=== PATIENT | female | born 1965 | race African-American/Black ===

== ENCOUNTER 2017-03-14 16:08 | Emergency (ER) | payer MEDICARE, MEDICAID ==
[~2017-03-14] VITALS: Ht 175.3 cm; Wt 95.5 kg
[~2017-03-14 16:08] MED LIST: AMBIEN5 MG PO; AMOXICILLIN500 MG PO; ANTIVERT PO; ASPIRIN325 MG PO; ASPIRIN81 MG PO; CIPROFLOXACIN500 M1 PO; COUMADIN2.5 MG PO; COUMADIN4 MG PO; DIFLUCAN150 MG PO; EFFEXOR37.5 MG PO; EQL ASPIRIN325 MG PO; KEPPRA1000 MG PO; LANSOPRAZOLE30 MG PO; LEVETIRACETAM500 MG PO; LIPITOR10 MG PO; LIPITOR40 M1 PO; LIPITOR40 MG PO; LORTAB 7.5-3251 TAB PO; NAPROSYN500 MG PO; PLAVIX75 MG PO; PROTONIX20 M1 PO; PROVERA5 MG PO; SEROQUEL50 MG PO; ULTRAM50 M1 PO; WARFARIN5 MG PO; XANAX0.25 MG PO; ZANAFLEX4 MG PO; ZOCOR20 M1 PO; ZOLOFT100 MG PO; ZOLOFT50 MG PO
[2017-03-14] MEDS ORDERED: AMOXICILLIN500 MG PO ×2 (17:12→17:25)
[2017-03-14] MEDS ORDERED: MUCINEX600 MG PO ×2 (17:12→17:25)
[2017-03-14 17:20] VITALS: BP 125/79
== END 2017-03-14 17:20 | disposition home or self-care (01) ==
LOC: ED 16:08
DX: J40 Bronchitis, not specified as acute or chronic (principal); F32.9 Major depressive disorder, single episode, unspecified; E78.5 Hyperlipidemia, unspecified; G40.909 Epilepsy, unspecified, not intractable, without status epilepticus; Z86.73 Personal history of transient ischemic attack (TIA), and cerebral infarction without residual deficits

== ENCOUNTER 2017-03-15 13:09 | Emergency (ER) | payer MEDICARE, MEDICAID ==
[~2017-03-15] VITALS: Ht 175.3 cm; Wt 100.0 kg
[~2017-03-15 13:09] MED LIST changes: +MUCINEX600 MG PO
[2017-03-15 13:54] LABS: HEMATOCRIT 34.5 % (37.0-47.0); HEMOGLOBIN 11.1 g/dl (12.0-16.0); MEAN CORPUSCULAR HGB 30.6 pG CALC (26.0-32.0); MEAN CORPUSCULAR HGB CONC 32.2 g/L CALC (32.0-36.0); NEUT# 1.36 thou/uL (2.00-7.15); RED BLOOD COUNT 3.63 mill/uL (4.20-5.60); RED CELL DISTRI WIDTH 13.5 % (11.5-15.5)
[2017-03-15 14:03] LABS: ALBUMIN 4.2 g/dL (3.2-5.0); ALKALINE PHOSPHATASE 80 u/l (38-126); AMYLASE 79 u/l (30-110); ANION GAP 14 (6-22 (CALC)); BILIRUBIN, TOTAL 0.4 mg/dL (0.0-1.4); BUN 7 mg/dL (7-17); BUN/CREATININE RATIO 11 (12-20 (CALC)); CALCIUM 9.1 mg/dL (8.4-10.2); CARBON DIOXIDE 23 mmol/l (22-30); CHLORIDE 106 mmol/l (95-108); CREATININE 0.6 mg/dL (0.5-1.0); GFR > 60 ML/MIN (>=60 (CALC)); GFR FOR AFR.AMER. > 60 ML/MIN (>=60 (CALC)); GLUCOSE 80 mg/dL (65-105); LIPASE 25 u/l (23-300); POTASSIUM 3.9 mmol/l (3.5-5.1); SGOT/AST 43 u/l (14-36); SGPT/ALT 44 u/l (9-52); SODIUM 139 mmol/l (137-146); TOTAL PROTEIN 7.1 g/dL (6.3-8.2)
[2017-03-15 14:09] LABS: ACT PARTIAL THROMBO TIME 27.6 SECONDS (20.0-32.5); D-DIMER 0.59 mg/L (0.19-0.60)
[2017-03-15 14:15] LABS: MYOGLOBIN 20 ng/mL (0 - 62)
[2017-03-15 18:25] VITALS: BP 127/78
== END 2017-03-15 18:45 | disposition home or self-care (01) ==
LOC: ED 13:09
PROVIDERS: Emergency Medicine
DX: R07.89 Other chest pain (principal); R94.31 Abnormal electrocardiogram [ECG] [EKG]; R06.02 Shortness of breath; R05 Cough; Z86.73 Personal history of transient ischemic attack (TIA), and cerebral infarction without residual deficits

== ENCOUNTER 2017-06-24 16:20 | Emergency (ER) | payer MEDICARE ==
[~2017-06-24] VITALS: Ht 175.3 cm; Wt 100.0 kg
[2017-06-24] MEDS ORDERED: NAPROSYN500 MG PO (16:55)
[2017-06-24] MEDS ORDERED: OMEPRAZOLE10 MG PO (16:56)
[2017-06-24] MEDS ORDERED: TRAZODONE50 MG PO (16:56)
[2017-06-24 17:14] LABS: HEMATOCRIT 37.1 % (37.0-47.0); HEMOGLOBIN 11.7 g/dl (12.0-16.0); IMMATURE GRANULOCYTES 0.2 % (0.0-1.0); MEAN CELL VOLUME 95.4 fL CALC (80.0-100.0); MEAN CORPUSCULAR HGB 30.1 pG CALC (26.0-32.0); MEAN CORPUSCULAR HGB CONC 31.5 g/L CALC (32.0-36.0); NEUT# 2.59 thou/uL (2.00-7.15); RED BLOOD COUNT 3.89 mill/uL (4.20-5.60); RED CELL DISTRI WIDTH 13.6 % (11.5-15.5)
[2017-06-24 17:19] LABS: ANION GAP 14 (6-22 (CALC)); BUN 11 mg/dL (7-17); BUN/CREATININE RATIO 18 (12-20 (CALC)); CALCIUM 9.4 mg/dL (8.4-10.2); CARBON DIOXIDE 27 mmol/l (22-30); CHLORIDE 106 mmol/l (95-108); CREATININE 0.6 mg/dL (0.5-1.0); GFR > 60 ML/MIN (>=60 (CALC)); GFR FOR AFR.AMER. > 60 ML/MIN (>=60 (CALC)); GLUCOSE 83 mg/dL (65-105); POTASSIUM 3.6 mmol/l (3.5-5.1); SODIUM 142 mmol/l (137-146)
[2017-06-24 17:38] VITALS: BP 117/82
== END 2017-06-24 17:47 | disposition home or self-care (01) ==
LOC: ED 16:20
PROVIDERS: Family Medicine
DX: G40.409 Other generalized epilepsy and epileptic syndromes, not intractable, without status epilepticus (principal); F32.9 Major depressive disorder, single episode, unspecified; E78.5 Hyperlipidemia, unspecified; Z86.73 Personal history of transient ischemic attack (TIA), and cerebral infarction without residual deficits

== ENCOUNTER 2017-09-24 17:16 | Emergency (ER) | payer MEDICARE ==
[~2017-09-24] VITALS: Ht 175.3 cm; Wt 100.0 kg
[~2017-09-24 17:16] MED LIST changes: +OMEPRAZOLE10 MG PO; +TRAZODONE50 MG PO
[2017-09-24] MEDS ORDERED: DILAUDID8 MG PO (17:37)
[2017-09-24] MEDS ORDERED: GABAPENTIN100 MG PO (17:38)
[2017-09-24] MEDS ORDERED: NAPROSYN500 MG PO (18:31)
[2017-09-24 18:49] VITALS: BP 131/77
== END 2017-09-24 18:49 | disposition home or self-care (01) ==
LOC: ED 17:16
DX: S93.402A Sprain of unspecified ligament of left ankle, initial encounter (principal); M25.472 Effusion, left ankle; M25.572 Pain in left ankle and joints of left foot; W18.30XA Fall on same level, unspecified, initial encounter; X50.1XXA Overexertion from prolonged static or awkward postures, initial encounter; Y93.A9 Activity, other involving cardiorespiratory exercise; Y92.538 Other ambulatory health services establishments as the place of occurrence of the external cause

== ENCOUNTER 2017-10-09 17:40 | Emergency (ER) | payer MEDICARE ==
[~2017-10-09] VITALS: Ht 175.3 cm; Wt 103.0 kg
[~2017-10-09 17:40] MED LIST changes: +DILAUDID8 MG PO; +GABAPENTIN100 MG PO
[2017-10-09 19:01] LABS: HEMATOCRIT 37.4 % (37.0-47.0); IMMATURE GRANULOCYTES 0.2 % (0.0-1.0); MEAN CELL VOLUME 95.2 fL CALC (80.0-100.0); MEAN CORPUSCULAR HGB 30.5 pG CALC (26.0-32.0); MEAN CORPUSCULAR HGB CONC 32.1 g/L CALC (32.0-36.0); NEUT# 3.46 thou/uL (2.00-7.15); RED BLOOD COUNT 3.93 mill/uL (4.20-5.60); RED CELL DISTRI WIDTH 13.5 % (11.5-15.5)
[2017-10-09 19:02] LABS: URINE BLOOD DIPSTICK NEGATIVE (NEGATIVE); URINE COLOR YELLOW; URINE GLUCOSE - DIPSTICK NEGATIVE (NEGATIVE); URINE KETONE 15 mg/dL (NEGATIVE); URINE LEUK ESTERASE NEGATIVE (NEGATIVE); URINE NITRITE - DIPSTICK NEGATIVE (Negative); URINE PH 5.5 (4.5-8.0); URINE PROTEIN - DIPSTICK NEGATIVE (NEG-TRACE); URINE SPECIFIC GRAVITY >=1.030
[2017-10-09 19:07] LABS: COCAINE NEGATIVE (NEGATIVE); URINE BILIRUBIN - DIPSTICK SMALL (NEGATIVE); URINE CLARITY CLEAR
[2017-10-09 19:08] LABS: BARBITURATES NEGATIVE (NEGATIVE); METHADONE NEGATIVE (NEGATIVE); OXCYCODONE NEGATIVE (NEGATIVE); TETRAHYDROCANNABIONOL POSITIVE (NEGATIVE); TRICYLIC ANTIDEPRESSANTS NEGATIVE (NEGATIVE)
[2017-10-09 19:13] LABS: ACT PARTIAL THROMBO TIME 28.4 SECONDS (20.0-32.5); PROTHROMBIN TIME 11.1 SECONDS (9.0-12.5)
[2017-10-09 19:21] LABS: ALBUMIN 4.3 g/dL (3.2-5.0); ALKALINE PHOSPHATASE 126 u/l (38-126); ANION GAP 15 (6-22 (CALC)); BILIRUBIN, TOTAL 0.4 mg/dL (0.0-1.4); BUN 13 mg/dL (7-17); BUN/CREATININE RATIO 20 (12-20 (CALC)); CALCIUM 10.1 mg/dL (8.4-10.2); CARBON DIOXIDE 25 mmol/l (22-30); CHLORIDE 107 mmol/l (95-108); CREATININE 0.6 mg/dL (0.5-1.0); GFR > 60 ML/MIN (>=60 (CALC)); GFR FOR AFR.AMER. > 60 ML/MIN (>=60 (CALC)); GLUCOSE 103 mg/dL (65-105); POTASSIUM 3.7 mmol/l (3.5-5.1); SGOT/AST 30 u/l (14-36); SGPT/ALT 28 u/l (9-52); SODIUM 143 mmol/l (137-146)
[2017-10-09 19:33] LABS: MYOGLOBIN 27 ng/mL (0 - 62)
[2017-10-10 08:09] VITALS: BP 116/61
== END 2017-10-10 08:25 | disposition home or self-care (01) ==
LOC: ED 17:40
PROVIDERS: Emergency Medicine
DX: R51 Headache (principal); R20.2 Paresthesia of skin; R42 Dizziness and giddiness; F17.210 Nicotine dependence, cigarettes, uncomplicated; I69.398 Other sequelae of cerebral infarction; M24.542 Contracture, left hand; R00.1 Bradycardia, unspecified; R56.9 Unspecified convulsions

== ENCOUNTER 2017-10-31 15:39 | Emergency (ER) | payer MEDICARE ==
[~2017-10-31] VITALS: Ht 175.3 cm; Wt 102.0 kg
[2017-10-31 16:43] LABS: HEMATOCRIT 39.6 % (37.0-47.0); HEMOGLOBIN 12.4 g/dl (12.0-16.0); IMMATURE GRANULOCYTES 0.1 % (0.0-1.0); MEAN CELL VOLUME 96.4 fL CALC (80.0-100.0); MEAN CORPUSCULAR HGB 30.2 pG CALC (26.0-32.0); MEAN CORPUSCULAR HGB CONC 31.3 g/L CALC (32.0-36.0); NEUT# 2.9 thou/uL (2.00-7.15); RED BLOOD COUNT 4.11 mill/uL (4.20-5.60); RED CELL DISTRI WIDTH 13.5 % (11.5-15.5)
[2017-10-31 18:02] LABS: ALBUMIN 4.4 g/dL (3.2-5.0); ALKALINE PHOSPHATASE 125 u/l (38-126); ANION GAP 20 (6-22 (CALC)); BILIRUBIN, TOTAL 0.4 mg/dL (0.0-1.4); BUN 7 mg/dL (7-17); BUN/CREATININE RATIO 11 (12-20 (CALC)); CALCIUM 9.9 mg/dL (8.4-10.2); CARBON DIOXIDE 24 mmol/l (22-30); CHLORIDE 107 mmol/l (95-108); CREATININE 0.6 mg/dL (0.5-1.0); GFR > 60 ML/MIN (>=60 (CALC)); GFR FOR AFR.AMER. > 60 ML/MIN (>=60 (CALC)); GLUCOSE 82 mg/dL (65-105); SGOT/AST 40 u/l (14-36); SGPT/ALT 33 u/l (9-52); SODIUM 146 mmol/l (137-146); TOTAL PROTEIN 7.5 g/dL (6.3-8.2)
[2017-10-31 18:11] VITALS: BP 134/87
[2017-10-31 18:11] LABS: MYOGLOBIN 20 ng/mL (0 - 62)
== END 2017-10-31 18:12 | disposition home or self-care (01) ==
LOC: ED 15:39
PROVIDERS: Family Medicine
DX: R56.9 Unspecified convulsions (principal); R53.1 Weakness; R51 Headache; F17.210 Nicotine dependence, cigarettes, uncomplicated; D86.0 Sarcoidosis of lung; Z86.73 Personal history of transient ischemic attack (TIA), and cerebral infarction without residual deficits
CPT/HCPCS: J2060

== ENCOUNTER 2017-11-06 20:58 | Emergency (ER) | payer MEDICARE ==
[~2017-11-06] VITALS: Ht 175.3 cm; Wt 103.0 kg
[2017-11-06 22:01] LABS: HEMATOCRIT 37.3 % (37.0-47.0); HEMOGLOBIN 11.9 g/dl (12.0-16.0); IMMATURE GRANULOCYTES 0.4 % (0.0-1.0); MEAN CELL VOLUME 94.7 fL CALC (80.0-100.0); MEAN CORPUSCULAR HGB 30.2 pG CALC (26.0-32.0); MEAN CORPUSCULAR HGB CONC 31.9 g/L CALC (32.0-36.0); NEUT# 2.68 thou/uL (2.00-7.15); RED BLOOD COUNT 3.94 mill/uL (4.20-5.60); RED CELL DISTRI WIDTH 13.6 % (11.5-15.5)
[2017-11-06 22:13] LABS: ALBUMIN 4.2 g/dL (3.2-5.0); ALKALINE PHOSPHATASE 105 u/l (38-126); ANION GAP 12 (6-22 (CALC)); BILIRUBIN, TOTAL 0.3 mg/dL (0.0-1.4); BUN 10 mg/dL (7-17); BUN/CREATININE RATIO 15 (12-20 (CALC)); CALCIUM 10.2 mg/dL (8.4-10.2); CARBON DIOXIDE 28 mmol/l (22-30); CHLORIDE 106 mmol/l (95-108); CREATININE 0.7 mg/dL (0.5-1.0); GFR > 60 ML/MIN (>=60 (CALC)); GFR FOR AFR.AMER. > 60 ML/MIN (>=60 (CALC)); GLUCOSE 90 mg/dL (65-105); POTASSIUM 3.7 mmol/l (3.5-5.1); SGOT/AST 24 u/l (14-36); SGPT/ALT 26 u/l (9-52); SODIUM 143 mmol/l (137-146); TOTAL PROTEIN 6.8 g/dL (6.3-8.2)
[2017-11-06 22:43] LABS: URINE BLOOD DIPSTICK NEGATIVE (NEGATIVE); URINE COLOR YELLOW; URINE GLUCOSE - DIPSTICK NEGATIVE (NEGATIVE); URINE KETONE TRACE mg/dL (NEGATIVE); URINE NITRITE - DIPSTICK NEGATIVE (Negative); URINE PH 5.5 (4.5-8.0); URINE PROTEIN - DIPSTICK TRACE mg/dL (NEG-TRACE); URINE SPECIFIC GRAVITY >=1.030
[2017-11-06 22:45] LABS: URINE CLARITY CLEAR; URINE LEUK ESTERASE SMALL (NEGATIVE)
[2017-11-06 22:47] LABS: URINE BILIRUBIN - DIPSTICK NEGATIVE (NEGATIVE)
[2017-11-06 22:48] LABS: BARBITURATES NEGATIVE (NEGATIVE); COCAINE NEGATIVE (NEGATIVE); METHADONE NEGATIVE (NEGATIVE); TETRAHYDROCANNABIONOL NEGATIVE (NEGATIVE); TRICYLIC ANTIDEPRESSANTS NEGATIVE (NEGATIVE)
[2017-11-06 22:49] LABS: OXCYCODONE NEGATIVE (NEGATIVE)
[2017-11-06 22:53] LABS: URINE BACTERIA MODERATE hpf; URINE MUCUS MODERATE hpf (NONE-FEW); URINE RBC 0-2 RBC/hpf (0-5)
[2017-11-06 23:23] VITALS: BP 118/66
== END 2017-11-06 23:31 | disposition home or self-care (01) ==
LOC: ED 20:58
PROVIDERS: Emergency Medicine
DX: R56.9 Unspecified convulsions (principal); F43.20 Adjustment disorder, unspecified; M62.838 Other muscle spasm; Z86.73 Personal history of transient ischemic attack (TIA), and cerebral infarction without residual deficits
CPT/HCPCS: J2060

== ENCOUNTER 2017-12-04 13:57 | Observation (INO) | payer MEDICARE, MEDICAID ==
[~2017-12-04] VITALS: Ht 175.3 cm; Wt 101.0 kg
[2017-12-04 15:56] LABS: HEMATOCRIT 37.4 % (37.0-47.0); HEMOGLOBIN 12.1 g/dl (12.0-16.0); MEAN CELL VOLUME 94.2 fL CALC (80.0-100.0); MEAN CORPUSCULAR HGB 30.5 pG CALC (26.0-32.0); MEAN CORPUSCULAR HGB CONC 32.4 g/L CALC (32.0-36.0); RED BLOOD COUNT 3.97 mill/uL (4.20-5.60); RED CELL DISTRI WIDTH 13.6 % (11.5-15.5)
[2017-12-04 16:07] LABS: ANION GAP 16 (6-22 (CALC)); BUN 10 mg/dL (7-17); BUN/CREATININE RATIO 14 (12-20 (CALC)); CARBON DIOXIDE 27 mmol/l (22-30); CHLORIDE 107 mmol/l (95-108); CREATININE 0.7 mg/dL (0.5-1.0); GFR > 60 ML/MIN (>=60 (CALC)); GFR FOR AFR.AMER. > 60 ML/MIN (>=60 (CALC)); POTASSIUM 3.6 mmol/l (3.5-5.1); SODIUM 146 mmol/l (137-146)
[2017-12-04 17:17] VITALS: BP 106/68
[2017-12-04 19:05] VITALS: BP 123/80
[2017-12-04 23:45] VITALS: BP 106/62
[2017-12-05 01:28] LABS: URINE BLOOD DIPSTICK NEGATIVE (NEGATIVE); URINE COLOR YELLOW; URINE GLUCOSE - DIPSTICK NEGATIVE (NEGATIVE); URINE KETONE NEGATIVE (NEGATIVE); URINE LEUK ESTERASE NEGATIVE (NEGATIVE); URINE NITRITE - DIPSTICK NEGATIVE (Negative); URINE PROTEIN - DIPSTICK TRACE mg/dL (NEG-TRACE); URINE SPECIFIC GRAVITY >=1.030
[2017-12-05 01:31] LABS: URINE BILIRUBIN - DIPSTICK NEGATIVE (NEGATIVE); URINE CLARITY SL CLOUDY
[2017-12-05 03:45] VITALS: BP 100/65
[2017-12-05 08:38] VITALS: BP 114/70
[2017-12-05 15:13] LABS: CHOLESTEROL HDL RATIO 4.1 (<4.4 (CALC))
[2017-12-05 16:00] VITALS: BP 109/72
[2017-12-05 19:45] VITALS: BP 105/60
[2017-12-06 00:50] VITALS: BP 116/72
[2017-12-06 04:40] VITALS: BP 129/82
[2017-12-06 05:57] LABS: HEMATOCRIT 33.4 % (37.0-47.0); HEMOGLOBIN 10.8 g/dl (12.0-16.0); MEAN CELL VOLUME 93.6 fL CALC (80.0-100.0); MEAN CORPUSCULAR HGB 30.3 pG CALC (26.0-32.0); MEAN CORPUSCULAR HGB CONC 32.3 g/L CALC (32.0-36.0); RED BLOOD COUNT 3.57 mill/uL (4.20-5.60); RED CELL DISTRI WIDTH 13.3 % (11.5-15.5)
[2017-12-06 06:16] LABS: ANION GAP 14 (6-22 (CALC)); BUN 8 mg/dL (7-17); BUN/CREATININE RATIO 13 (12-20 (CALC)); CARBON DIOXIDE 25 mmol/l (22-30); CHLORIDE 109 mmol/l (95-108); CREATININE 0.6 mg/dL (0.5-1.0); GFR > 60 ML/MIN (>=60 (CALC)); GFR FOR AFR.AMER. > 60 ML/MIN (>=60 (CALC)); MAGNESIUM 1.6 mg/dL (1.6-2.3); POTASSIUM 3.8 mmol/l (3.5-5.1); SODIUM 144 mmol/l (137-146)
[2017-12-06 07:00] VITALS: BP 126/80
[2017-12-06] MEDS ORDERED: MECLIZINE 2525 MG PO (13:22)
[2017-12-06] MEDS ORDERED: MEDDOSEPAK PO (13:22)
== END 2017-12-06 14:26 | disposition home or self-care (01) ==
LOC: ED 13:57 → ED-I 16:25 → ED 16:40 → MS2 16:41
PROVIDERS: Family Medicine; Nurse Practitioner Family; ADMIT Internal Medicine; ATTEND Internal Medicine
DX: R55 Syncope and collapse (principal); H81.10 Benign paroxysmal vertigo, unspecified ear; I69.954 Hemiplegia and hemiparesis following unspecified cerebrovascular disease affecting left non-dominant side; G40.909 Epilepsy, unspecified, not intractable, without status epilepticus; F32.9 Major depressive disorder, single episode, unspecified; F41.1 Generalized anxiety disorder; Z87.891 Personal history of nicotine dependence

== ENCOUNTER 2018-01-03 11:26 | Observation (INO) | payer MEDICARE, MEDICAID ==
[~2018-01-03] VITALS: Ht 175.3 cm; Wt 101.0 kg
[~2018-01-03 11:26] MED LIST changes: +MECLIZINE 2525 MG PO; +MEDDOSEPAK PO
--- NOTE | 2018-01-03 11:33 | NUR ---
PT TO ROOM PER W/C
--- NOTE | 2018-01-03 11:46 | NUR ---
PT NOW WITH IV ESTABLISHED, BLOOD DRAWN, EKG COMPLETED. PT DESCRIBES SHORTNESS OF BREATH WITH DEEP INSPIRATION, FELT IN HER BACK, ALSO. SATS ARE GOOD, HIGH 90s%.
[2018-01-03 11:53] LABS: IMMATURE GRANULOCYTES 0.2 % (0.0-1.0); MEAN CELL VOLUME 93.5 fL CALC (80.0-100.0); MEAN CORPUSCULAR HGB 30.4 pG CALC (26.0-32.0); MEAN CORPUSCULAR HGB CONC 32.5 g/L CALC (32.0-36.0); NEUT# 2.4 thou/uL (2.00-7.15); RED BLOOD COUNT 4.28 mill/uL (4.20-5.60); RED CELL DISTRI WIDTH 13.3 % (11.5-15.5)
[2018-01-03 12:12] LABS: ANION GAP 19 (6-22 (CALC)); BUN 8 mg/dL (7-17); BUN/CREATININE RATIO 12 (12-20 (CALC)); CARBON DIOXIDE 25 mmol/l (22-30); CHLORIDE 105 mmol/l (95-108); CREATININE 0.7 mg/dL (0.5-1.0); GFR > 60 ML/MIN (>=60 (CALC)); GFR FOR AFR.AMER. > 60 ML/MIN (>=60 (CALC)); POTASSIUM 3.7 mmol/l (3.5-5.1); SODIUM 145 mmol/l (137-146)
[2018-01-03 12:41] LABS: URINE BILIRUBIN - DIPSTICK NEGATIVE (NEGATIVE); URINE BLOOD DIPSTICK NEGATIVE (NEGATIVE); URINE COLOR YELLOW; URINE GLUCOSE - DIPSTICK NEGATIVE (NEGATIVE); URINE KETONE TRACE mg/dL (NEGATIVE); URINE LEUK ESTERASE TRACE (NEGATIVE); URINE NITRITE - DIPSTICK NEGATIVE (Negative); URINE PH 5.5 (4.5-8.0); URINE PROTEIN - DIPSTICK NEGATIVE (NEG-TRACE); URINE SPECIFIC GRAVITY >=1.030
[2018-01-03 12:51] LABS: URINE CLARITY CLEAR
--- NOTE | 2018-01-03 12:53 | NUR ---
SBAR PRINTED TO FLOOR
--- NOTE | 2018-01-03 12:54 | NUR ---
PT UPDATED ON PLAN OF CARE, AGREEABLE TO ADMISSION FOR OBS.
--- NOTE | 2018-01-03 13:34 | NUR ---
PT CAME FROM ER VIA STRETCHER BY ERIN SOLITARIO. STAND BY ASSIST TO THE SCALE AND THEN TO BED. ORIENTED PT TO CALL LIGHT AND SAFETY PRECAUTIONS REINFORCED.
--- NOTE | 2018-01-03 13:36 | NUR ---
PT TAKEN TO ROOM 261 WITHOUT INCIDENT; REPORT WAS TO RADHA.
[2018-01-03 13:44] VITALS: BP 121/80
--- NOTE | 2018-01-03 15:15 | NUR ---
ASSESSMENT DONE AND TELE IN PLACE. RESPS EVEN AND UNLABORED. PT DENIES PAIN AT THIS TIME. # 20 RAC THAT APPEARS HEALTHY. PT HAS LEFT SIDE WEAKNESS. CALL LIGHT IN REACH.
[2018-01-03 16:00] VITALS: BP 119/74
--- NOTE | 2018-01-03 16:07 | NUR ---
PT IS RESTING IN BED WITH NO S/S OF DISTRESS NOTED. PT DENIES NEEDS AT THIS TIME. CALL LIGHT IN REACH.
[2018-01-03 18:10] VITALS: BP 105/64
--- NOTE | 2018-01-03 18:21 | NUR ---
MEDICATED PT WITH TYLENOL SEE EMAR. CHIEF SCIENCE OFFICER OBTAIN VS P75, BP 105/64 O2 100. CALL LIGHT IN REACH.
--- NOTE | 2018-01-03 19:31 | NUR ---
BEDSIDE REPORT RECEIVED FROM ERIN ARGUELLES. PT SITTING UP IN BED. C/O SOME CHEST PRESSURE 3/10 AND STATES THAT TYLENOL WAS SOMEWHAT EFFECTIVE. ALSO C/O SOME DIFFICULTY BREATHING; OXYGEN SATURATION 98% ON ROOM AIR; RESPIRATIONS EVEN AND UNLABORED. PLACED ON OXYGEN 2L VIA NC AND EDUCATED ON BREATHING TECHNIQUES. WILL REASSESS. LUNGS SOUND MILDLY COURSE IN THE BASES. PLAN OF CARE DISCUSSED. PT ENCOURAGED TO VERBALIZE CONCERNS. STATES UNDERSTANDING. SAFETY MEASURES IN PLACE. CALL LIGHT WITHIN REACH.
--- NOTE | 2018-01-03 20:34 | NUR ---
PT REASSESSED; STATES THAT HER BREATHING IS MUCH BETTER AND HER CHEST PRESSURE HAS SUBSIDED. MEDICATIONS ADMINISTERED. NO REQUESTS FROM PT AT THIS TIME. ENCOURAGED TO CALL FOR ASSISTANCE PRN. STATES UNDERSTANDING. SAFETY MEASURES IN PLACE. CALL LIGHT WITHIN REACH.
[2018-01-03 23:56] VITALS: BP 104/60; BP 166/77
--- NOTE | 2018-01-03 23:59 | NUR ---
PT ASLEEP AT THIS TIME WITH NO SIGNS OF DISTRESS NOTED. RESPIRATIONS EVEN AND UNLABORED ON OXYGEN. VISITOR AT BEDSIDE. SAFETY MEASURES IN PLACE. CALL LIGHT WITHIN REACH.
[2018-01-04 03:51] VITALS: BP 89/55
--- NOTE | 2018-01-04 03:53 | NUR ---
PT ASLEEP AT THIS TIME WITH NO SIGNS OF DISTRESS NOTED. RESPIRATIONS EVEN AND UNLABORED ON OXGYEN. VISITOR REMAINS AT BEDSIDE. BLOOD PRESSURE DECREASED TO 89/55 PULSE 75. SAFETY MEASURES IN PLACE. CALL LIGHT WITHIN REACH.
--- NOTE | 2018-01-04 07:00 | NUR ---
RECEIVED BEDSIDE REPORT REPORT FROM ANGI KHAN. RESTING IN BED WITH EYES CLOSED, AWAKENS EASILY, VISITOR AT BEDSIDE. RESPS EVEN AND UNLABORED ON ROOM AIR, TELE MONITOR IN PLACE. VOICES NO NEEDS AT THIS TIME. PLAN OF CARE DISCUSSED. SAFETY PRECAUTIONS REINFORCED. BED IN LOWEST POSITION WITH WHEELS LOCKED. CALL LIGHT WITHIN REACH. ENCOURAGED PT TO CALL FOR ANY NEEDS.
[2018-01-04 08:36] VITALS: BP 101/61
[2018-01-04 11:00] VITALS: BP 109/64
--- NOTE | 2018-01-04 12:00 | NUR ---
SITTING ON EDGE OF BED EATING LUNCH. RESPS EVEN AND UNLABORED ON O2 VIA NC, TELE MONITOR IN PLACE. VOICES NO NEEDS AT THIS TIME. CALL LIGHT WITHIN REACH. WILL CONTINUE TO MONITOR.
--- NOTE | 2018-01-04 16:11 | NUR ---
RESTING IN SEMI FOWLERS. RESPS EVEN AND UNLABORED ON O2 VIA NC, TELE MONITOR IN PLACE. DENIES PAIN OR DISCOMFORT. CALL LIGHT WITHIN REACH. WILL CONTINUE TO MONITOR.
--- NOTE | 2018-01-04 16:32 | NUR ---
Patient feels okay. No unusual Side effects. c
[2018-01-04 16:38] VITALS: BP 90/51
--- NOTE | 2018-01-04 18:48 | NUR ---
IV site discontinued, cath intact. No edema , no redness, voices no discomfort.
--- NOTE | 2018-01-04 19:24 | NUR ---
Discharge instructions given. Patient verbalizes understanding of same. Discharged in stable condition via Wheelchair to Home with friend. All belongings sent with pt.
== END 2018-01-04 19:25 | disposition home or self-care (01) ==
LOC: ED 11:26 → ED-I 12:43 → ED 12:53 → MS2 12:54
PROVIDERS: Family Medicine; ADMIT Internal Medicine; ATTEND Internal Medicine
DX: R07.2 Precordial pain (principal); F17.210 Nicotine dependence, cigarettes, uncomplicated; F32.9 Major depressive disorder, single episode, unspecified; F41.1 Generalized anxiety disorder; G40.909 Epilepsy, unspecified, not intractable, without status epilepticus; Z86.73 Personal history of transient ischemic attack (TIA), and cerebral infarction without residual deficits

== ENCOUNTER 2018-03-26 11:59 | Emergency (ER) | payer MEDICARE, MEDICAID ==
[~2018-03-26] VITALS: Ht 175.3 cm; Wt 81.0 kg
[2018-03-26 12:54] LABS: HEMATOCRIT 39.4 % (37.0-47.0); HEMOGLOBIN 12.9 g/dl (12.0-16.0); IMMATURE GRANULOCYTES 0.2 % (0.0-1.0); MEAN CELL VOLUME 93.1 fL CALC (80.0-100.0); MEAN CORPUSCULAR HGB 30.5 pG CALC (26.0-32.0); MEAN CORPUSCULAR HGB CONC 32.7 g/L CALC (32.0-36.0); NEUT# 2.07 thou/uL (2.00-7.15); RED BLOOD COUNT 4.23 mill/uL (4.20-5.60); RED CELL DISTRI WIDTH 13.5 % (11.5-15.5)
[2018-03-26 13:15] LABS: ALBUMIN 4.2 g/dL (3.2-5.0); ALKALINE PHOSPHATASE 83 u/l (38-126); ANION GAP 12 (6-22 (CALC)); BILIRUBIN, TOTAL 0.5 mg/dL (0.0-1.4); BUN 10 mg/dL (7-17); BUN/CREATININE RATIO 16 (12-20 (CALC)); CARBON DIOXIDE 26 mmol/l (22-30); CHLORIDE 106 mmol/l (95-108); CREATININE 0.6 mg/dL (0.5-1.0); GFR > 60 ML/MIN (>=60 (CALC)); GFR FOR AFR.AMER. > 60 ML/MIN (>=60 (CALC)); MAGNESIUM 1.6 mg/dL (1.6-2.3); POTASSIUM 3.7 mmol/l (3.5-5.1); SGOT/AST 21 u/l (14-36); SGPT/ALT 33 u/l (9-52); SODIUM 140 mmol/l (137-146); TOTAL PROTEIN 7.4 g/dL (6.3-8.2)
[2018-03-26 13:45] LABS: TSH, 3RD GENERATION 1.59 uIU/mL (0.47 - 4.68)
[2018-03-26 14:49] LABS: URINE BILIRUBIN - DIPSTICK NEGATIVE (NEGATIVE); URINE BLOOD DIPSTICK NEGATIVE (NEGATIVE); URINE COLOR YELLOW; URINE GLUCOSE - DIPSTICK NEGATIVE (NEGATIVE); URINE KETONE NEGATIVE (NEGATIVE); URINE NITRITE - DIPSTICK NEGATIVE (Negative); URINE PROTEIN - DIPSTICK NEGATIVE (NEG-TRACE); URINE SPECIFIC GRAVITY <=1.005; URINE UROBILINOGEN - DIPSTICK 0.2 E.U./dL (0.2)
[2018-03-26 15:09] LABS: URINE CLARITY TURBID; URINE LEUK ESTERASE MODERATE (NEGATIVE)
[2018-03-26 15:20] LABS: URINE BACTERIA FEW hpf; URINE SQUAMOUS EPITHELIAL CELL FEW EPI/hpf (0-FEW)
[2018-03-26] MEDS ORDERED: BACTRIM DS1 TAB PO (15:33)
[2018-03-26 15:56] VITALS: BP 115/74
== END 2018-03-26 15:56 | disposition home or self-care (01) ==
LOC: ED 11:59
PROVIDERS: Family Medicine
DX: N39.0 Urinary tract infection, site not specified (principal); R53.1 Weakness; I69.354 Hemiplegia and hemiparesis following cerebral infarction affecting left non-dominant side; R25.3 Fasciculation; F41.9 Anxiety disorder, unspecified; F17.200 Nicotine dependence, unspecified, uncomplicated

== ENCOUNTER 2018-05-11 12:01 | Inpatient (IN) | payer MEDICARE, MEDICAID ==
[~2018-05-11] VITALS: Ht 175.3 cm; Wt 98.4 kg
[~2018-05-11 12:01] MED LIST changes: +BACTRIM DS1 TAB PO
[2018-05-11 12:09] VITALS: BP 86/60
[2018-05-11 12:10] VITALS: BP 106/60
[2018-05-11 12:37] LABS: HEMATOCRIT 37.7 % (37.0-47.0); HEMOGLOBIN 12.6 g/dl (12.0-16.0); MEAN CELL VOLUME 92.9 fL CALC (80.0-100.0); MEAN CORPUSCULAR HGB CONC 33.4 g/L CALC (32.0-36.0); NEUT# 1.82 thou/uL (2.00-7.15); RED BLOOD COUNT 4.06 mill/uL (4.20-5.60); RED CELL DISTRI WIDTH 13.5 % (11.5-15.5)
[2018-05-11 13:06] LABS: ALBUMIN 4.1 g/dL (3.2-5.0); ALKALINE PHOSPHATASE 74 u/l (38-126); ANION GAP 10 (6-22 (CALC)); BILIRUBIN, TOTAL 0.7 mg/dL (0.0-1.4); BUN 14 mg/dL (7-17); BUN/CREATININE RATIO 26 (12-20 (CALC)); CARBON DIOXIDE 26 mmol/l (22-30); CHLORIDE 107 mmol/l (95-108); CREATININE 0.5 mg/dL (0.5-1.0); GFR > 60 ML/MIN (>=60 (CALC)); GFR FOR AFR.AMER. > 60 ML/MIN (>=60 (CALC)); POTASSIUM 3.6 mmol/l (3.5-5.1); SGOT/AST 28 u/l (14-36); SGPT/ALT 28 u/l (9-52); SODIUM 139 mmol/l (137-146); TOTAL PROTEIN 7.5 g/dL (6.3-8.2)
[2018-05-11 13:14] LABS: MYOGLOBIN 32 ng/mL (0 - 62)
[2018-05-11] MEDS ORDERED: NAPROXEN EC500 MG PO (13:31)
[2018-05-11] MEDS ORDERED: LUNESTA1 M1 PO (13:31)
[2018-05-11 15:38] VITALS: BP 111/75
[2018-05-11 19:08] LABS: BARBITURATES NEGATIVE (NEGATIVE); COCAINE NEGATIVE (NEGATIVE); METHADONE NEGATIVE (NEGATIVE); OXCYCODONE NEGATIVE (NEGATIVE); TETRAHYDROCANNABIONOL NEGATIVE (NEGATIVE); TRICYLIC ANTIDEPRESSANTS NEGATIVE (NEGATIVE); URINE BILIRUBIN - DIPSTICK NEGATIVE (NEGATIVE); URINE BLOOD DIPSTICK NEGATIVE (NEGATIVE); URINE COLOR YELLOW; URINE GLUCOSE - DIPSTICK NEGATIVE (NEGATIVE); URINE KETONE NEGATIVE (NEGATIVE); URINE LEUK ESTERASE NEGATIVE (NEGATIVE); URINE NITRITE - DIPSTICK NEGATIVE (Negative); URINE PROTEIN - DIPSTICK NEGATIVE (NEG-TRACE); URINE SPECIFIC GRAVITY 1.015
[2018-05-11 19:09] LABS: URINE CLARITY CLEAR
[2018-05-11 20:02] VITALS: BP 116/79
[2018-05-11 23:58] VITALS: BP 109/59
[2018-05-12 04:00] VITALS: BP 100/60
[2018-05-12 06:25] LABS: CHOLESTEROL HDL RATIO 5.1 (<4.4 (CALC)); MAGNESIUM 1.6 mg/dL (1.6-2.3)
[2018-05-12 08:29] VITALS: BP 88/54
[2018-05-12 11:22] VITALS: BP 107/74; BP 119/88; BP 85/45
[2018-05-12 16:30] VITALS: BP 117/73
[2018-05-12 19:19] VITALS: BP 122/83
[2018-05-13] VITALS (11 sets, daily range): BP systolic 92–127; BP diastolic 59–93
[2018-05-13 05:09] LABS: HEMATOCRIT 32.8 % (37.0-47.0); HEMOGLOBIN 10.9 g/dl (12.0-16.0); IMMATURE GRANULOCYTES 0.2 % (0.0-5.0); MEAN CORPUSCULAR HGB 31.2 pG CALC (26.0-32.0); MEAN CORPUSCULAR HGB CONC 33.2 g/L CALC (32.0-36.0); NEUT# 1.4 thou/uL (2.00-7.15); RED BLOOD COUNT 3.49 mill/uL (4.20-5.60); RED CELL DISTRI WIDTH 13.8 % (11.5-15.5)
[2018-05-13 05:25] LABS: ANION GAP 10 (6-22 (CALC)); BUN 13 mg/dL (7-17); BUN/CREATININE RATIO 23 (12-20 (CALC)); CARBON DIOXIDE 25 mmol/l (22-30); CHLORIDE 111 mmol/l (95-108); CREATININE 0.6 mg/dL (0.5-1.0); GFR > 60 ML/MIN (>=60 (CALC)); GFR FOR AFR.AMER. > 60 ML/MIN (>=60 (CALC)); MAGNESIUM 1.6 mg/dL (1.6-2.3); POTASSIUM 3.9 mmol/l (3.5-5.1); SODIUM 142 mmol/l (137-146)
[2018-05-14 04:45] VITALS: BP 101/69
[2018-05-14 07:49] VITALS: BP 118/80
[2018-05-14 10:54] VITALS: BP 102/69
[2018-05-14] MEDS ORDERED: MIDODRINE HCL5 MG PO (14:35)
[2018-05-14] MEDS ORDERED: ATORVASTATIN CA40 MG PO (14:35)
[2018-05-14 14:55] VITALS: BP 111/74
[2018-05-14 19:00] VITALS: BP 103/68; BP 142/74
[2018-05-14 23:55] VITALS: BP 112/74
[2018-05-15 05:09] VITALS: BP 117/70
[2018-05-15 08:59] VITALS: BP 104/69
[2018-05-15 11:13] VITALS: BP 109/69
[2018-05-15] MEDS ORDERED: ZOFRAN ODT4 MG PO (14:44)
== END 2018-05-15 15:17 | disposition home health service (06) | DRG 312 ==
LOC: ED 12:01 → ED-I 13:23 → ED 13:54 → MS2 13:55
PROVIDERS: Nurse Practitioner Family; ADMIT Internal Medicine; ATTEND Internal Medicine
DX: I95.1 Orthostatic hypotension (principal); I69.954 Hemiplegia and hemiparesis following unspecified cerebrovascular disease affecting left non-dominant side; F32.9 Major depressive disorder, single episode, unspecified; F41.1 Generalized anxiety disorder; G40.909 Epilepsy, unspecified, not intractable, without status epilepticus; F17.210 Nicotine dependence, cigarettes, uncomplicated; H53.40 Unspecified visual field defects; I69.998 Other sequelae following unspecified cerebrovascular disease; E16.2 Hypoglycemia, unspecified; E86.0 Dehydration; G89.29 Other chronic pain
CPT/HCPCS: G0378

== ENCOUNTER 2018-05-23 11:36 | Emergency (ER) | payer MEDICARE, MEDICAID ==
[~2018-05-23] VITALS: Ht 175.3 cm; Wt 100.0 kg
[~2018-05-23 11:36] MED LIST changes: +ATORVASTATIN CA40 MG PO; +LUNESTA1 M1 PO; +MIDODRINE HCL5 MG PO; +NAPROXEN EC500 MG PO; +ZOFRAN ODT4 MG PO
[2018-05-23 12:03] LABS: HEMATOCRIT 37.6 % (37.0-47.0); HEMOGLOBIN 12.6 g/dl (12.0-16.0); IMMATURE GRANULOCYTES 0.2 % (0.0-5.0); MEAN CELL VOLUME 91.9 fL CALC (80.0-100.0); MEAN CORPUSCULAR HGB 30.8 pG CALC (26.0-32.0); MEAN CORPUSCULAR HGB CONC 33.5 g/L CALC (32.0-36.0); NEUT# 2.7 thou/uL (2.00-7.15); RED BLOOD COUNT 4.09 mill/uL (4.20-5.60); RED CELL DISTRI WIDTH 13.3 % (11.5-15.5)
[2018-05-23 12:15] LABS: ALBUMIN 4.6 g/dL (3.2-5.0); ALKALINE PHOSPHATASE 75 u/l (38-126); ANION GAP 17 (6-22 (CALC)); BILIRUBIN, TOTAL 0.8 mg/dL (0.0-1.4); BUN 7 mg/dL (7-17); BUN/CREATININE RATIO 12 (12-20 (CALC)); CARBON DIOXIDE 24 mmol/l (22-30); CHLORIDE 105 mmol/l (95-108); CREATININE 0.6 mg/dL (0.5-1.0); GFR > 60 ML/MIN (>=60 (CALC)); GFR FOR AFR.AMER. > 60 ML/MIN (>=60 (CALC)); POTASSIUM 3.6 mmol/l (3.5-5.1); SGOT/AST 33 u/l (14-36); SGPT/ALT 32 u/l (9-52); SODIUM 142 mmol/l (137-146); TOTAL PROTEIN 8.3 g/dL (6.3-8.2)
[2018-05-23 12:27] LABS: MYOGLOBIN 51 ng/mL (0 - 62)
[2018-05-23 13:18] LABS: URINE BILIRUBIN - DIPSTICK NEGATIVE (NEGATIVE); URINE BLOOD DIPSTICK NEGATIVE (NEGATIVE); URINE COLOR YELLOW; URINE GLUCOSE - DIPSTICK NEGATIVE (NEGATIVE); URINE KETONE NEGATIVE (NEGATIVE); URINE LEUK ESTERASE TRACE (NEGATIVE); URINE NITRITE - DIPSTICK NEGATIVE (Negative); URINE PROTEIN - DIPSTICK NEGATIVE (NEG-TRACE); URINE SPECIFIC GRAVITY 1.015; URINE UROBILINOGEN - DIPSTICK 0.2 E.U./dL (0.2)
[2018-05-23 13:21] LABS: URINE CLARITY CLEAR
[2018-05-23 14:00] VITALS: BP 125/89
== END 2018-05-23 14:00 | disposition home or self-care (01) ==
LOC: ED 11:36
PROVIDERS: Emergency Medicine
DX: R06.00 Dyspnea, unspecified (principal); I69.954 Hemiplegia and hemiparesis following unspecified cerebrovascular disease affecting left non-dominant side; F41.9 Anxiety disorder, unspecified; F17.210 Nicotine dependence, cigarettes, uncomplicated; R07.89 Other chest pain

== ENCOUNTER 2020-04-03 16:25 | Emergency (ER) | payer MEDICARE ==
[~2020-04-03] VITALS: Ht 175.3 cm; Wt 100.0 kg
[2020-04-03 19:55] VITALS: BP 113/77
== END 2020-04-03 19:55 | disposition home or self-care (01) ==
LOC: ED 16:25
DX: U07.1 COVID-19 (principal); F17.210 Nicotine dependence, cigarettes, uncomplicated

== ENCOUNTER 2020-04-05 19:45 | Observation (INO) | payer MEDICARE ==
[~2020-04-05] VITALS: Ht 175.3 cm; Wt 102.7 kg
--- NOTE | 2020-04-05 20:18 | NUR ---
PATIENT TO ROOM 10 WITH SLOW STEADY GAIT. TRIAGE COMPLETED AT BEDSIDE. ERIK LARA.
[2020-04-05 21:41] LABS: URINE BLOOD DIPSTICK NEGATIVE (NEGATIVE); URINE COLOR YELLOW; URINE GLUCOSE - DIPSTICK NEGATIVE (NEGATIVE); URINE KETONE 15 mg/dL (NEGATIVE); URINE LEUK ESTERASE TRACE (NEGATIVE); URINE NITRITE - DIPSTICK NEGATIVE (Negative); URINE PH 5.5 (4.5-8.0); URINE PROTEIN - DIPSTICK 30 mg/dL (NEG-TRACE); URINE SPECIFIC GRAVITY >=1.030
[2020-04-05 21:42] LABS: URINE BILIRUBIN - DIPSTICK NEGATIVE (NEGATIVE)
[2020-04-05 21:48] LABS: URINE MUCUS MANY hpf (NONE-FEW); URINE SQUAMOUS EPITHELIAL CELL MODERATE EPI/hpf (0-FEW)
--- NOTE | 2020-04-05 22:00 | NUR ---
NO CHANGE IN EXAM. VSS.
[2020-04-05 22:34] LABS: HEMATOCRIT 35.5 % (37.0-47.0); HEMOGLOBIN 11.7 g/dl (12.0-16.0); IMMATURE GRANULOCYTES 0.4 % (0.0-5.0); MEAN CELL VOLUME 93.4 fL CALC (80.0-100.0); MEAN CORPUSCULAR HGB 30.8 pG CALC (26.0-32.0); NEUT# 2.67 thou/uL (2.00-7.15); RED BLOOD COUNT 3.8 mill/uL (4.20-5.60); RED CELL DISTRI WIDTH 14.1 % (11.5-15.5)
[2020-04-05 22:46] LABS: ALBUMIN 3.9 g/dL (3.2-5.0); ALKALINE PHOSPHATASE 98 u/l (38-126); BUN 9 mg/dL (7-17); BUN/CREATININE RATIO 12 (12-20 (CALC)); CHLORIDE 106 mmol/l (95-108); CREATININE 0.8 mg/dL (0.5-1.0); GFR > 60 ML/MIN (>=60 (CALC)); GFR FOR AFR.AMER. > 60 ML/MIN (>=60 (CALC)); POTASSIUM 3.7 mmol/l (3.5-5.1); SGOT/AST 29 u/l (14-36); SODIUM 138 mmol/l (137-146)
[2020-04-05 22:53] LABS: ANION GAP 7 (6-22 (CALC)); BILIRUBIN, TOTAL 0.4 mg/dL (0.0-1.4); CARBON DIOXIDE 29 mmol/l (22-30)
[2020-04-05 22:59] LABS: MYOGLOBIN 53 ng/mL (0 - 62)
--- NOTE | 2020-04-05 23:00 | NUR ---
AWAITING DISPO. NO CHANGE.
[2020-04-05 23:07] LABS: PROTHROMBIN TIME 10.5 SECONDS (9.0-12.5)
[2020-04-05] MEDS ORDERED: ZOLOFT100 MG PO (23:54)
--- NOTE | 2020-04-06 | NUR ---
AWAITING DISPO. NO C/O. NAD.
--- NOTE | 2020-04-06 01:04 | NUR ---
Admission Note Report Given to: ERIN CRABTREE Transported by: Wheelchair X Stretcher Transported with: X Nurse Transporter X Patent IV O2 X Cement Storage Worker Location: X ICU MS2
[2020-04-06 01:20] VITALS: BP 122/75
--- NOTE | 2020-04-06 01:40 | NUR ---
PATIENT ARRIVED TO FLOOR FROM ER VIA STRETCHER. ASSESSMENT COMPLETE. PATIENT A&O X 3. ABLE TO MAKE NEEDS KNOWN. DENIES PAIN. NO DISTRESS NOTES. RESPIRATIONS EVEN AND UNLABORED. LUNGS CLEAR. ABD SOFT, BOWEL SOUNDS PRESENT. LBM 04/05/20 REPORTED BY PATIENT. LT ARM CONTRACTED. #22 RH SALINE LOCKED. CALL LIGHT IN REACH. WILL CONTINUE TO MONITOR.
--- NOTE | 2020-04-06 02:00 | NUR ---
PATIENT RESTING IN BED. ABLE TO MAKE NEEDS KNOWN. NO DISTRESS NOTED. CALL LIGHT IN REACH. CONTINUE TO MONITOR.
--- NOTE | 2020-04-06 04:15 | NUR ---
PATIENT RESTING, EYES CLOSED. RESP EVEN AND UNLABORED. SR ON MONITOR. WILL CONTINUE TO MONITOR.
[2020-04-06 05:00] VITALS: BP 103/79
--- NOTE | 2020-04-06 06:26 | NUR ---
PATIENT RESTING IN BED EYES CLOSED. DENIES CHEST PAIN. SR ON MONITOR. CALL LIGHT IN REACH.
[2020-04-06 06:39] VITALS: BP 103/78
--- NOTE | 2020-04-06 06:45 | NUR ---
RECIEVED REPORT FROM ERIN FRANCISCO. ASSUMED PT CARE.
--- NOTE | 2020-04-06 07:30 | NUR ---
PT RESTING IN BED, A&OX3, ABLE TO MAKE NEEDS KNOWN. ASSESSMENT COMPLETE. RESPIRATIONS EVEN/UNLABORED. CALL LIGHT IN REACH. WILL MONITOR.
[2020-04-06 08:00] VITALS: BP 108/80
--- NOTE | 2020-04-06 08:45 | NUR ---
DR. HOWELL AT BEDSIDE FOR ASSESSMENTAND TO DISCUSS PLAN OF CARE. NEW ORDERS RECIEVED.
[2020-04-06 09:19] VITALS: BP 108/80
--- NOTE | 2020-04-06 10:45 | NUR ---
IV site discontinued, cath intact. No edema , no redness, voices no discomfort.
--- NOTE | 2020-04-06 11:55 | NUR ---
Discharge instructions given. Patient verbalizes understanding of same. Discharged in stable condition via Wheelchair to Home with family. All belongings sent with pt.
== END 2020-04-06 11:55 | disposition home or self-care (01) ==
LOC: ED 19:45 → ED-I 22:40 → ED 23:19 → ED-I 23:20 → ICU 23:20
PROVIDERS: Emergency Medicine; ADMIT Internal Medicine; ATTEND Internal Medicine
DX: R07.9 Chest pain, unspecified (principal); R51 Headache; G40.909 Epilepsy, unspecified, not intractable, without status epilepticus; F32.9 Major depressive disorder, single episode, unspecified; F41.1 Generalized anxiety disorder; F17.210 Nicotine dependence, cigarettes, uncomplicated; Z86.73 Personal history of transient ischemic attack (TIA), and cerebral infarction without residual deficits; Z20.828 Contact with and (suspected) exposure to other viral communicable diseases

== ENCOUNTER 2020-09-30 09:51 | Emergency (ER) | payer MEDICARE ==
[~2020-09-30] VITALS: Ht 175.3 cm; Wt 103.0 kg
[2020-09-30] MEDS ORDERED: SM OMEPRAZOL20 MG PO (10:29)
[2020-09-30] MEDS ORDERED: NAPROXEN500 MG PO (10:32)
[2020-09-30 10:55] VITALS: BP 114/71
== END 2020-09-30 10:56 | disposition home or self-care (01) ==
LOC: ED 09:51
DX: S93.401A Sprain of unspecified ligament of right ankle, initial encounter (principal); I69.954 Hemiplegia and hemiparesis following unspecified cerebrovascular disease affecting left non-dominant side; F41.9 Anxiety disorder, unspecified; F17.200 Nicotine dependence, unspecified, uncomplicated; X50.3XXA Overexertion from repetitive movements, initial encounter

== ENCOUNTER 2021-03-11 00:40 | Emergency (ER) | payer MEDICARE ==
[~2021-03-11] VITALS: Ht 175.3 cm; Wt 105.0 kg
[~2021-03-11 00:40] MED LIST changes: +NAPROXEN500 MG PO; +SM OMEPRAZOL20 MG PO
[2021-03-11 01:14] LABS: HEMATOCRIT 39.2 % (37.0-47.0); HEMOGLOBIN 12.3 g/dl (12.0-16.0); IMMATURE GRANULOCYTES 0.4 % (0.0-5.0); MEAN CELL VOLUME 97.8 fL CALC (80.0-100.0); MEAN CORPUSCULAR HGB 30.7 pG CALC (26.0-32.0); MEAN CORPUSCULAR HGB CONC 31.4 g/dL CAL (32.0-36.0); NEUT# 4.16 thou/uL (2.00-7.15); RED BLOOD COUNT 4.01 mill/uL (4.20-5.60); RED CELL DISTRI WIDTH 13.5 % (11.5-15.5)
[2021-03-11 01:32] LABS: ALBUMIN 4.2 g/dL (3.2-5.0); ALKALINE PHOSPHATASE 77 u/l (38-126); BILIRUBIN, TOTAL 0.4 mg/dL (0.0-1.4); BUN 10 mg/dL (7-17); BUN/CREATININE RATIO 12 (12-20 (CALC)); CARBON DIOXIDE 28 mmol/l (22-30); CHLORIDE 104 mmol/l (95-108); CREATININE 0.8 mg/dL (0.5-1.0); ETHYL ALCOHOL 0 mg/dl (0-30); GFR > 60 ML/MIN (>=60 (CALC)); GFR FOR AFR.AMER. > 60 ML/MIN (>=60 (CALC)); SGOT/AST 24 u/l (14-36); SODIUM 141 mmol/l (137-146); TOTAL PROTEIN 7.5 g/dL (6.3-8.2)
[2021-03-11 01:35] LABS: ANION GAP 12 (6-22 (CALC)); POTASSIUM 3.1 mmol/l (3.5-5.1)
[2021-03-11 08:00] VITALS: BP 153/83
== END 2021-03-11 08:20 | disposition home or self-care (01) ==
LOC: ED 00:40
PROVIDERS: Emergency Medicine
DX: G40.909 Epilepsy, unspecified, not intractable, without status epilepticus (principal); F41.9 Anxiety disorder, unspecified; F17.200 Nicotine dependence, unspecified, uncomplicated; M62.422 Contracture of muscle, left upper arm; M25.69 Stiffness of other specified joint, not elsewhere classified; Z86.73 Personal history of transient ischemic attack (TIA), and cerebral infarction without residual deficits
CPT/HCPCS: J1953

== ENCOUNTER 2021-03-13 16:14 | Observation (INO) | payer MEDICARE ==
[~2021-03-13] VITALS: Ht 175.3 cm; Wt 93.0 kg
--- NOTE | 2021-03-13 16:14 | NUR ---
PT IMMEDIATLY TO TREATMENT ROOM. PT INSTRUCTED IN PLAN OF CARE.
--- NOTE | 2021-03-13 17:00 | NUR ---
PATIENT RESTING, NO DISTRESS.
--- NOTE | 2021-03-13 18:00 | NUR ---
PATIENT RESTING, NAD NOTED.
[2021-03-13 18:18] LABS: HEMATOCRIT 39.5 % (37.0-47.0); HEMOGLOBIN 12.7 g/dl (12.0-16.0); IMMATURE GRANULOCYTES 0.3 % (0.0-5.0); MEAN CELL VOLUME 94.7 fL CALC (80.0-100.0); MEAN CORPUSCULAR HGB 30.5 pG CALC (26.0-32.0); MEAN CORPUSCULAR HGB CONC 32.2 g/dL CAL (32.0-36.0); NEUT# 3.51 thou/uL (2.00-7.15); RED BLOOD COUNT 4.17 mill/uL (4.20-5.60); RED CELL DISTRI WIDTH 13.5 % (11.5-15.5)
[2021-03-13 18:25] LABS: ALKALINE PHOSPHATASE 73 u/l (38-126); ANION GAP 9 (6-22 (CALC)); BILIRUBIN, TOTAL 0.4 mg/dL (0.0-1.4); BUN 14 mg/dL (7-17); BUN/CREATININE RATIO 22 (12-20 (CALC)); CARBON DIOXIDE 27 mmol/l (22-30); CHLORIDE 105 mmol/l (95-108); CREATININE 0.6 mg/dL (0.5-1.0); GFR > 60 ML/MIN (>=60 (CALC)); GFR FOR AFR.AMER. > 60 ML/MIN (>=60 (CALC)); MAGNESIUM 1.8 mg/dL (1.6-2.3); POTASSIUM 3.4 mmol/l (3.5-5.1); SODIUM 137 mmol/l (137-146); TOTAL PROTEIN 7.2 g/dL (6.3-8.2)
[2021-03-13 18:33] LABS: SGOT/AST 48 u/l (14-36)
--- NOTE | 2021-03-13 18:45 | NUR ---
OK FOR PATIENT TO HAVE COFFEE PER DR MAGDALENO
[2021-03-13 18:56] LABS: TSH, 3RD GENERATION 1.15 uIU/mL (0.47 - 4.68)
--- NOTE | 2021-03-13 19:08 | NUR ---
PATIENT STATES SHE WOULD LIKE THE ATIVAN BEFORE THE MRI.
--- NOTE | 2021-03-13 19:30 | NUR ---
SECOND CUP OF COFFEE GIVENT O PATIENT BY DR MAGDALENO.
--- NOTE | 2021-03-13 20:05 | NUR ---
PATIENT TO MRI VIA VC, AAOX4. NO DISTRESS NOTED.
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
--- NOTE | 2021-03-13 21:05 | NUR ---
CHASE RETURNED BACK TO ROOM 6, AAOX4, RESP EVEN AND UNLABORED, NAD NOTED. PLAN REVIEWED. PATIENT STATES OK TO GIVE HER DAUGHTER MS. UNGER INFORMATION OVER THE PHONE. STEFAN UNGER [phone]
--- NOTE | 2021-03-13 22:02 | NUR ---
REPORT TO ERIN SMITH
--- NOTE | 2021-03-13 23:02 | NUR ---
PT AMBULATED TO BATHROOM, EARLIER REQUESTED ICE CREAM NOW REQUESTING A SHOWER, REMINDED THAT THIS IS AND EMERGENCY ROOM, AND THOSE ARE NOT COMMODITIES AVAILABLE IN THE E.R., LINENS AND CHARLENE SPRAY PROVIDED FOR PT COMFORT.
[2021-03-13 23:40] LABS: URINE BLOOD DIPSTICK NEGATIVE (NEGATIVE); URINE COLOR YELLOW; URINE GLUCOSE - DIPSTICK NEGATIVE (NEGATIVE); URINE KETONE TRACE mg/dL (NEGATIVE); URINE LEUK ESTERASE NEGATIVE (NEGATIVE); URINE PH 6.5 (4.5-8.0); URINE PROTEIN - DIPSTICK TRACE mg/dL (NEG-TRACE); URINE SPECIFIC GRAVITY 1.025
[2021-03-13 23:42] LABS: URINE BILIRUBIN - DIPSTICK NEGATIVE (NEGATIVE); URINE NITRITE - DIPSTICK NEGATIVE (Negative)
--- NOTE | 2021-03-14 | NUR ---
PATIENT ADMITTED FROM ER VIA WHEELCHAIR WITH ER STAFF IN ATTENDANCE. PATIENT IS ABLE TO TRANSFER FROM W/C TO THE BED. AWAKE ALERT AND ORIENTEDX3. PATIENT ADMITTED FOR POSSIBLE SEIZURE. 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 C/O THROBBING H/A-8/10 ON PAIN SCALE-MEDICATED WITH MOTRIN 800MG PO FOR H/A. PATIENT WITH LEFT SIDED WEAKNESS. SLIGHT CONTRACTURE OF LEFT FINGERS. HAND GRASP UNEQUAL-R>L. MOVEMENT OF LE WNL. STATES THAT SHE DOES AMBULATE WITH CANE. LIVE WITH FRIEND. STATES THAT SHE HAS BEEN TO 2 ER'S IN THE LAST WEEK WITH SIMILAR SX. TELE MONITOR IN PLACE-SR-65. SALINE LOCK TO LEFT HAND WITH GOOD BLOOD RETURN. LUNGS ARE CLEAR. ABD IS SOFT WITH ACTIVE BS. SLIGHT BLE SWELLING. PULSES ARE PALPABLE. DENIES ANY DIFFICULTY WITH URINATION. LAST BM WAS 03/10. PATIENT ORIENTED TO ROOM AND SURROUNDINGS. INSTRUCTED ON USE OF NURSE CALL LIGHT SYSTEM, TV REMOTE AND PHONE. SAFETY PRECAUTIONS REINFORCED. SIDERAILS PADDED FOR SEIZURE PRECAUTIONS. CALL LIGHT IN REACH. WILL CONT TO MONITOR. .
--- NOTE | 2021-03-14 00:17 | NUR ---
Admission Note Report Given to: ERIN HANDLEY Transported by: X Wheelchair Stretcher Transported with: X Nurse Transporter X Patent IV O2 X Lidar Technician Location: ICU X MS2
[2021-03-14 00:32] VITALS: BP 129/81
--- NOTE | 2021-03-14 02:41 | NUR ---
PATIENT RESTING IN BED AT THIS TIME WITH EYES CLOSED. RESPS ARE EVEN AND UNLABORED. TELE MONITOR IN PLACE. SIDERAILS PADDED FOR SEIZURE PRECAUTIONS. CALL LIGHT IN REACH. WILL CONT TO MONITOR.
[2021-03-14 04:00] VITALS: BP 131/88
--- NOTE | 2021-03-14 04:15 | NUR ---
PATIENT RESTING IN BED WITH EYES CLOSED. RESPS ARE EVEN AND U NLABORED. TELE MONITOR IN PLACE. CALL LIGHT IN REACH. WILL CONT TO MONITOR.
--- NOTE | 2021-03-14 07:00 | NUR ---
PT REPORT RECEIVED FROM NIGHT NURSEEMMANUELLE
[2021-03-14 07:30] VITALS: BP 112/67
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
[2021-03-14 11:00] VITALS: BP 117/70
[2021-03-14] MEDS ORDERED: SEROQUEL25 MG PO (11:25)
[2021-03-14] MEDS ORDERED: FIORICET PO (11:27)
--- NOTE | 2021-03-14 12:00 | NUR ---
PT WAS FOUND RESTING IN BEDSIDE CHAIR RELAXING AND EATING LUNCH;TELE IS IN PLACE;PT HAS NO REPORTS OF PAIN AT THIS TIME;SAFETY PRECAUTIONS IN PLACE;CALL LIGHT WITHIN REACH;PT ENCOURAGED TO CALL WITH ANY NEEDS OR CONCERNS;WILL CONTINUE TO MONITOR.
--- NOTE | 2021-03-14 15:02 | NUR ---
Discharge instructions given. Patient verbalizes understanding of same. Discharged in stable condition via Wheelchair to Home with family. All belongings sent with pt. DISCHARGE PACKET WAS GIVEN TO PT;DISCHARGE INSTRUCTIONS AND MEDICATIONS WERE EXPLAINED TO PT;PT EXPRESSED UNDERSTANDING AND HAD NO FURTHER QUESTIONS AT THIS TIME;SIGNATURE WAS OBTAINED;TELE WAS REMOVED;IV WAS REMOVED WITH NO COMPLICATIONS AND CATHETER INTACT; PT WAS TRANSPORTED VIA WC TO [facility] IN STABLE CONDITION ACCOMPANIED BY STAFF;ALL PT BELONGINGS WERE SENT WITH PT;PT WILL BE TRANSPORTED HOME WITH FAMILY;PT WILL ALSO BE IN THE CARE OF [facility];
== END 2021-03-14 15:02 ==
LOC: ED 16:14 → ED-I 23:00 → ED 23:20 → MS2 23:21
PROVIDERS: Emergency Medicine; ADMIT Internal Medicine; ATTEND Internal Medicine
DX: R51.9 Headache, unspecified (principal); R44.1 Visual hallucinations; F32.9 Major depressive disorder, single episode, unspecified; F41.1 Generalized anxiety disorder; G40.909 Epilepsy, unspecified, not intractable, without status epilepticus; F17.200 Nicotine dependence, unspecified, uncomplicated; Z86.73 Personal history of transient ischemic attack (TIA), and cerebral infarction without residual deficits; Z20.822 Contact with and (suspected) exposure to COVID-19
CPT/HCPCS: A9579; G0378; J1650; J2060

== ENCOUNTER 2021-08-26 12:03 | Emergency (ER) | payer MEDICARE, MEDICAID ==
[~2021-08-26] VITALS: Ht 175.3 cm; Wt 95.0 kg
[~2021-08-26 12:03] MED LIST changes: +FIORICET PO; +SEROQUEL25 MG PO
[2021-08-26 13:23] LABS: HEMATOCRIT 38.5 % (37.0-47.0); HEMOGLOBIN 12.3 g/dl (12.0-16.0); IMMATURE GRANULOCYTES 0.2 % (0.0-5.0); MEAN CORPUSCULAR HGB 31.3 pG CALC (26.0-32.0); MEAN CORPUSCULAR HGB CONC 31.9 g/dL CAL (32.0-36.0); NEUT# 2.55 thou/uL (2.00-7.15); RED BLOOD COUNT 3.93 mill/uL (4.20-5.60); RED CELL DISTRI WIDTH 13.3 % (11.5-15.5)
[2021-08-26 13:36] LABS: ALBUMIN 4.2 g/dL (3.2-5.0); ALKALINE PHOSPHATASE 73 u/l (38-126); BUN 7 mg/dL (7-17); BUN/CREATININE RATIO 13 (12-20 (CALC)); CHLORIDE 108 mmol/l (95-108); CREATININE 0.6 mg/dL (0.5-1.0); GFR > 60 ML/MIN (>=60 (CALC)); GFR FOR AFR.AMER. > 60 ML/MIN (>=60 (CALC)); POTASSIUM 3.9 mmol/l (3.5-5.1); SGOT/AST 23 u/l (14-36); SODIUM 139 mmol/l (137-146); TOTAL PROTEIN 7.3 g/dL (6.3-8.2)
[2021-08-26 13:37] LABS: ANION GAP 14 (6-22 (CALC)); BILIRUBIN, TOTAL 0.7 mg/dL (0.0-1.4); CARBON DIOXIDE 21 mmol/l (22-30)
[2021-08-26 17:27] VITALS: BP 133/78
== END 2021-08-26 17:41 | disposition home or self-care (01) ==
LOC: ED 12:03
PROVIDERS: Family Medicine
DX: R07.89 Other chest pain (principal); G40.909 Epilepsy, unspecified, not intractable, without status epilepticus; F41.9 Anxiety disorder, unspecified; F17.200 Nicotine dependence, unspecified, uncomplicated; W06.XXXA Fall from bed, initial encounter; Y92.003 Bedroom of unspecified non-institutional (private) residence as the place of occurrence of the external cause; Z86.73 Personal history of transient ischemic attack (TIA), and cerebral infarction without residual deficits
CPT/HCPCS: J1953; J2060

== ENCOUNTER 2021-11-12 11:59 | Emergency (ER) | payer MEDICARE, MEDICAID ==
[~2021-11-12] VITALS: Ht 175.3 cm; Wt 87.0 kg
[2021-11-12 13:17] LABS: URINE BILIRUBIN - DIPSTICK NEGATIVE (NEGATIVE); URINE BLOOD DIPSTICK NEGATIVE (NEGATIVE); URINE COLOR YELLOW; URINE GLUCOSE - DIPSTICK NEGATIVE (NEGATIVE); URINE KETONE TRACE mg/dL (NEGATIVE); URINE LEUK ESTERASE NEGATIVE (NEGATIVE); URINE NITRITE - DIPSTICK NEGATIVE (Negative); URINE PH 6.5 (4.5-8.0); URINE PROTEIN - DIPSTICK NEGATIVE (NEG-TRACE)
[2021-11-12 13:19] LABS: HEMATOCRIT 36.3 % (37.0-47.0); HEMOGLOBIN 11.3 g/dl (12.0-16.0); IMMATURE GRANULOCYTES 0.2 % (0.0-5.0); MEAN CELL VOLUME 99.7 fL CALC (80.0-100.0); MEAN CORPUSCULAR HGB CONC 31.1 g/dL CAL (32.0-36.0); NEUT# 1.8 thou/uL (2.00-7.15); RED BLOOD COUNT 3.64 mill/uL (4.20-5.60); RED CELL DISTRI WIDTH 13.3 % (11.5-15.5)
[2021-11-12 13:43] LABS: ALKALINE PHOSPHATASE 82 u/l (38-126); BUN 7 mg/dL (7-17); BUN/CREATININE RATIO 12 (12-20 (CALC)); CHLORIDE 108 mmol/l (95-108); CREATININE 0.6 mg/dL (0.5-1.0); GFR > 60 ML/MIN (>=60 (CALC)); GFR FOR AFR.AMER. > 60 ML/MIN (>=60 (CALC)); POTASSIUM 3.9 mmol/l (3.5-5.1); SGOT/AST 23 u/l (14-36); SODIUM 139 mmol/l (137-146); TOTAL PROTEIN 6.2 g/dL (6.3-8.2)
[2021-11-12 13:45] LABS: ALBUMIN 3.3 g/dL (3.2-5.0); ANION GAP 8 (6-22 (CALC)); BILIRUBIN, TOTAL 0.4 mg/dL (0.0-1.4); CARBON DIOXIDE 27 mmol/l (22-30)
[2021-11-12 13:53] LABS: MYOGLOBIN 37 ng/mL (0 - 62)
[2021-11-12 14:10] VITALS: BP 120/72
== END 2021-11-12 14:20 | disposition home or self-care (01) ==
LOC: ED 11:59
PROVIDERS: Emergency Medicine
DX: G40.909 Epilepsy, unspecified, not intractable, without status epilepticus (principal); F41.9 Anxiety disorder, unspecified; F17.200 Nicotine dependence, unspecified, uncomplicated; Z86.73 Personal history of transient ischemic attack (TIA), and cerebral infarction without residual deficits

== ENCOUNTER 2022-04-27 21:36 | Emergency (ER) | payer MEDICARE, MEDICAID ==
[~2022-04-27] VITALS: Ht 175.3 cm; Wt 95.0 kg
[2022-04-27 21:52] VITALS: BP 115/65
[2022-04-27 22:00] VITALS: BP 123/89
[2022-04-27 22:07] LABS: HEMATOCRIT 38.4 % (37.0-47.0); HEMOGLOBIN 12.4 g/dl (12.0-16.0); IMMATURE GRANULOCYTES 0.2 % (0.0-5.0); MEAN CELL VOLUME 96.2 fL CALC (80.0-100.0); MEAN CORPUSCULAR HGB 31.1 pG CALC (26.0-32.0); MEAN CORPUSCULAR HGB CONC 32.3 g/dL CAL (32.0-36.0); NEUT# 3.59 thou/uL (2.00-7.15); RED BLOOD COUNT 3.99 mill/uL (4.20-5.60); RED CELL DISTRI WIDTH 13.4 % (11.5-15.5)
[2022-04-27 22:23] LABS: ALKALINE PHOSPHATASE 77 u/l (38-126); BILIRUBIN, TOTAL 0.4 mg/dL (0.0-1.4); BUN 8 mg/dL (7-17); BUN/CREATININE RATIO 12 (12-20 (CALC)); CARBON DIOXIDE 23 mmol/l (22-30); CHLORIDE 105 mmol/l (95-108); CREATININE 0.7 mg/dL (0.5-1.0); ETHYL ALCOHOL 0 mg/dl (0-30); GFR FOR AFR.AMER. > 60 ML/MIN (>=60 (CALC)); GFR OTHER RACES > 60 ML/MIN (>=60 (CALC)); SGOT/AST 32 u/l (14-36); SODIUM 140 mmol/l (137-146); TOTAL PROTEIN 6.9 g/dL (6.3-8.2)
[2022-04-27 22:26] LABS: ALBUMIN 4.1 g/dL (3.2-5.0); ANION GAP 15 (6-22 (CALC)); POTASSIUM 3.1 mmol/l (3.5-5.1)
[2022-04-27 22:33] LABS: MYOGLOBIN 87 ng/mL (0 - 62)
[2022-04-27 23:39] VITALS: BP 171/86
[2022-04-28] VITALS: BP 157/101
[2022-04-28 00:07] LABS: URINE BILIRUBIN - DIPSTICK NEGATIVE (NEGATIVE); URINE BLOOD DIPSTICK TRACE-INTACT (NEGATIVE); URINE COLOR YELLOW; URINE GLUCOSE - DIPSTICK NEGATIVE (NEGATIVE); URINE KETONE NEGATIVE (NEGATIVE); URINE PH 5.5 (4.5-8.0); URINE PROTEIN - DIPSTICK NEGATIVE (NEG-TRACE); URINE SPECIFIC GRAVITY 1.015; URINE UROBILINOGEN - DIPSTICK 0.2 E.U./dL (0.2)
[2022-04-28 00:08] LABS: URINE LEUK ESTERASE SMALL (NEGATIVE); URINE NITRITE - DIPSTICK NEGATIVE (Negative)
[2022-04-28 00:12] LABS: URINE BACTERIA FEW hpf; URINE MUCUS MANY hpf (NONE-FEW); URINE SQUAMOUS EPITHELIAL CELL MANY EPI/hpf (0-FEW)
[2022-04-28 00:31] VITALS: BP 78/54
[2022-04-28 00:34] VITALS: BP 154/83
[2022-04-28 01:00] VITALS: BP 135/71
[2022-04-28] MEDS ORDERED: PROMETHAZINE HY25 M1 PO (01:00)
[2022-04-28 01:14] VITALS: BP 135/71
== END 2022-04-28 01:19 | disposition home or self-care (01) ==
LOC: ED 21:36
PROVIDERS: Family Medicine
DX: K52.9 Noninfective gastroenteritis and colitis, unspecified (principal); G40.909 Epilepsy, unspecified, not intractable, without status epilepticus; I69.354 Hemiplegia and hemiparesis following cerebral infarction affecting left non-dominant side; F41.9 Anxiety disorder, unspecified; F17.200 Nicotine dependence, unspecified, uncomplicated; Z20.822 Contact with and (suspected) exposure to COVID-19
CPT/HCPCS: J1953

== ENCOUNTER 2022-06-09 12:28 | Emergency (ER) | payer MEDICARE ==
[~2022-06-09] VITALS: Ht 175.3 cm; Wt 97.7 kg
[2022-06-09] VITALS (14 sets, daily range): BP systolic 98–155; BP diastolic 70–88
[~2022-06-09 12:28] MED LIST changes: +PROMETHAZINE HY25 M1 PO
[2022-06-09 12:58] LABS: HEMOGLOBIN 11.6 g/dl (12.0-16.0); IMMATURE GRANULOCYTES 0.2 % (0.0-5.0); MEAN CELL VOLUME 94.6 fL CALC (80.0-100.0); MEAN CORPUSCULAR HGB 31.4 pG CALC (26.0-32.0); MEAN CORPUSCULAR HGB CONC 33.1 g/dL CAL (32.0-36.0); NEUT# 2.34 thou/uL (2.00-7.15); RED BLOOD COUNT 3.7 mill/uL (4.20-5.60); RED CELL DISTRI WIDTH 13.1 % (11.5-15.5)
[2022-06-09 13:40] LABS: ALBUMIN 3.9 g/dL (3.2-5.0); ALKALINE PHOSPHATASE 85 u/l (38-126); ANION GAP 13 (6-22 (CALC)); BILIRUBIN, TOTAL 0.4 mg/dL (0.0-1.4); BUN 8 mg/dL (7-17); BUN/CREATININE RATIO 14 (12-20 (CALC)); CARBON DIOXIDE 24 mmol/l (22-30); CHLORIDE 108 mmol/l (95-108); CREATININE 0.6 mg/dL (0.5-1.0); ETHYL ALCOHOL 0 mg/dl (0-30); GFR FOR AFR.AMER. > 60 ML/MIN (>=60 (CALC)); GFR OTHER RACES > 60 ML/MIN (>=60 (CALC)); POTASSIUM 3.4 mmol/l (3.5-5.1); SGOT/AST 22 u/l (14-36); SODIUM 141 mmol/l (137-146); TOTAL PROTEIN 6.9 g/dL (6.3-8.2)
[2022-06-09 14:14] LABS: URINE BILIRUBIN - DIPSTICK NEGATIVE (NEGATIVE); URINE BLOOD DIPSTICK NEGATIVE (NEGATIVE); URINE COLOR YELLOW; URINE GLUCOSE - DIPSTICK NEGATIVE (NEGATIVE); URINE KETONE TRACE mg/dL (NEGATIVE); URINE PH 6.5 (4.5-8.0); URINE PROTEIN - DIPSTICK NEGATIVE (NEG-TRACE); URINE SPECIFIC GRAVITY 1.025
[2022-06-09 14:15] LABS: URINE LEUK ESTERASE SMALL (NEGATIVE); URINE NITRITE - DIPSTICK NEGATIVE (Negative)
[2022-06-09 14:23] LABS: URINE RBC 0-2 RBC/hpf (0-5); URINE SQUAMOUS EPITHELIAL CELL FEW EPI/hpf (0-FEW); URINE TRICHOMONAS FEW hpf
[2022-06-09] MEDS ORDERED: KEFLEX500 MG PO (15:19)
[2022-06-09] MEDS ORDERED: METRONIDAZOLE500 M1 PO (15:56)
== END 2022-06-09 15:59 | disposition home or self-care (01) ==
LOC: ED 12:28
PROVIDERS: Family Medicine
DX: N39.0 Urinary tract infection, site not specified (principal); F41.9 Anxiety disorder, unspecified; G40.909 Epilepsy, unspecified, not intractable, without status epilepticus; I25.10 Atherosclerotic heart disease of native coronary artery without angina pectoris; E78.5 Hyperlipidemia, unspecified; F17.210 Nicotine dependence, cigarettes, uncomplicated; I69.334 Monoplegia of upper limb following cerebral infarction affecting left non-dominant side

== ENCOUNTER 2022-07-14 21:30 | Emergency (ER) | payer MEDICARE ==
[2022-07-14] VITALS (7 sets, daily range): BP systolic 111–127; BP diastolic 70–81
[~2022-07-14] VITALS: Ht 175.3 cm; Wt 100.0 kg
[~2022-07-14 21:30] MED LIST changes: +KEFLEX500 MG PO; +METRONIDAZOLE500 M1 PO
[2022-07-14 22:22] LABS: HEMATOCRIT 37.2 % (37.0-47.0); HEMOGLOBIN 11.7 g/dl (12.0-16.0); IMMATURE GRANULOCYTES 0.2 % (0.0-5.0); MEAN CELL VOLUME 97.6 fL CALC (80.0-100.0); MEAN CORPUSCULAR HGB 30.7 pG CALC (26.0-32.0); MEAN CORPUSCULAR HGB CONC 31.5 g/dL CAL (32.0-36.0); NEUT# 3.68 thou/uL (2.00-7.15); RED BLOOD COUNT 3.81 mill/uL (4.20-5.60)
[2022-07-14 22:35] LABS: ALBUMIN 4.1 g/dL (3.2-5.0); ALKALINE PHOSPHATASE 74 u/l (38-126); ANION GAP 15 (6-22 (CALC)); BILIRUBIN, TOTAL 0.4 mg/dL (0.0-1.4); BUN 9 mg/dL (7-17); BUN/CREATININE RATIO 10 (12-20 (CALC)); CARBON DIOXIDE 27 mmol/l (22-30); CHLORIDE 105 mmol/l (95-108); CREATININE 0.9 mg/dL (0.5-1.0); GFR FOR AFR.AMER. > 60 ML/MIN (>=60 (CALC)); GFR OTHER RACES > 60 ML/MIN (>=60 (CALC)); POTASSIUM 3.3 mmol/l (3.5-5.1); SGOT/AST 26 u/l (14-36); SODIUM 143 mmol/l (137-146); TOTAL PROTEIN 6.9 g/dL (6.3-8.2)
[2022-07-14 22:47] LABS: MYOGLOBIN 35 ng/mL (0 - 62)
[2022-07-14 23:40] LABS: URINE BLOOD DIPSTICK NEGATIVE (NEGATIVE); URINE COLOR YELLOW; URINE GLUCOSE - DIPSTICK NEGATIVE (NEGATIVE); URINE KETONE TRACE mg/dL (NEGATIVE); URINE LEUK ESTERASE TRACE (NEGATIVE); URINE PH 5.5 (4.5-8.0); URINE PROTEIN - DIPSTICK TRACE mg/dL (NEG-TRACE); URINE SPECIFIC GRAVITY >=1.030
[2022-07-14 23:42] LABS: URINE BILIRUBIN - DIPSTICK SMALL (NEGATIVE)
[2022-07-14 23:43] LABS: URINE NITRITE - DIPSTICK NEGATIVE (Negative)
[2022-07-15 00:33] VITALS: BP 121/74
== END 2022-07-15 01:57 | disposition home or self-care (01) ==
LOC: ED 21:30
PROVIDERS: Emergency Medicine
DX: G40.909 Epilepsy, unspecified, not intractable, without status epilepticus (principal); F41.9 Anxiety disorder, unspecified; F17.200 Nicotine dependence, unspecified, uncomplicated; Z86.73 Personal history of transient ischemic attack (TIA), and cerebral infarction without residual deficits
CPT/HCPCS: J1953

== ENCOUNTER 2022-07-19 12:04 | Observation (INO) | payer MEDICARE ==
[~2022-07-19] VITALS: Ht 175.3 cm; Wt 99.5 kg
[2022-07-19] VITALS (22 sets, daily range): BP systolic 99–150; BP diastolic 66–95
--- NOTE | 2022-07-19 12:12 | NUR ---
PATIET HEADED TO CT SCAN
[2022-07-19 12:28] LABS: HEMATOCRIT 37.8 % (37.0-47.0); HEMOGLOBIN 11.9 g/dl (12.0-16.0); IMMATURE GRANULOCYTES 0.1 % (0.0-5.0); MEAN CELL VOLUME 98.7 fL CALC (80.0-100.0); MEAN CORPUSCULAR HGB 31.1 pG CALC (26.0-32.0); MEAN CORPUSCULAR HGB CONC 31.5 g/dL CAL (32.0-36.0); NEUT# 4.06 thou/uL (2.00-7.15); RED BLOOD COUNT 3.83 mill/uL (4.20-5.60); RED CELL DISTRI WIDTH 13.2 % (11.5-15.5)
[2022-07-19 12:39] LABS: ALBUMIN 4.1 g/dL (3.2-5.0); ALKALINE PHOSPHATASE 63 u/l (38-126); ANION GAP 15 (6-22 (CALC)); BILIRUBIN, TOTAL 0.4 mg/dL (0.0-1.4); BUN 10 mg/dL (7-17); BUN/CREATININE RATIO 16 (12-20 (CALC)); CARBON DIOXIDE 24 mmol/l (22-30); CHLORIDE 108 mmol/l (95-108); CREATININE 0.6 mg/dL (0.5-1.0); GFR FOR AFR.AMER. > 60 ML/MIN (>=60 (CALC)); GFR OTHER RACES > 60 ML/MIN (>=60 (CALC)); POTASSIUM 3.8 mmol/l (3.5-5.1); SGOT/AST 32 u/l (14-36); SODIUM 143 mmol/l (137-146); TOTAL PROTEIN 7.2 g/dL (6.3-8.2)
[2022-07-19 12:45] LABS: INTERNATIONAL NORMALIZED RATIO 1.2 RATIO (0.7-1.3); PROTHROMBIN TIME 11.5 SECONDS (9.0-12.5)
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
[2022-07-19 14:41] LABS: URINE BILIRUBIN - DIPSTICK NEGATIVE (NEGATIVE); URINE COLOR YELLOW; URINE GLUCOSE - DIPSTICK NEGATIVE (NEGATIVE); URINE KETONE NEGATIVE (NEGATIVE); URINE PH 7.5 (4.5-8.0); URINE PROTEIN - DIPSTICK NEGATIVE (NEG-TRACE); URINE SPECIFIC GRAVITY 1.015
[2022-07-19 14:42] LABS: URINE BLOOD DIPSTICK NEGATIVE (NEGATIVE); URINE LEUK ESTERASE TRACE (NEGATIVE); URINE NITRITE - DIPSTICK NEGATIVE (Negative)
[2022-07-20] VITALS (10 sets, daily range): BP systolic 91–138; BP diastolic 67–84
[2022-07-20 06:50] LABS: HEMATOCRIT 34.3 % (37.0-47.0); HEMOGLOBIN 10.9 g/dl (12.0-16.0); MEAN CELL VOLUME 98.6 fL CALC (80.0-100.0); MEAN CORPUSCULAR HGB 31.3 pG CALC (26.0-32.0); MEAN CORPUSCULAR HGB CONC 31.8 g/dL CAL (32.0-36.0); NEUT# 1.52 thou/uL (2.00-7.15); RED BLOOD COUNT 3.48 mill/uL (4.20-5.60); RED CELL DISTRI WIDTH 13.2 % (11.5-15.5)
[2022-07-20 06:59] LABS: ALBUMIN 3.7 g/dL (3.2-5.0); ALKALINE PHOSPHATASE 73 u/l (38-126); ANION GAP 10 (6-22 (CALC)); BILIRUBIN, TOTAL 0.3 mg/dL (0.0-1.4); BUN 9 mg/dL (7-17); BUN/CREATININE RATIO 16 (12-20 (CALC)); CARBON DIOXIDE 24 mmol/l (22-30); CHLORIDE 108 mmol/l (95-108); CREATININE 0.6 mg/dL (0.5-1.0); GFR FOR AFR.AMER. > 60 ML/MIN (>=60 (CALC)); GFR OTHER RACES > 60 ML/MIN (>=60 (CALC)); MAGNESIUM 1.7 mg/dL (1.6-2.3); POTASSIUM 3.6 mmol/l (3.5-5.1); SGOT/AST 26 u/l (14-36); SODIUM 140 mmol/l (137-146); TOTAL PROTEIN 6.4 g/dL (6.3-8.2)
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
--- NOTE | 2022-07-20 10:13 | NUR ---
HELPED PT TO THE SIDE OF THE BED FOR A BED BATH, PT DENIES ANY PAIN/CHEST PAIN, PT DID STATE SHE WAS TIRED, PT AWARE WE ARE AWAITING MRI, BED IN LOWEST POSITION, CALL LIGHT IN BED WITH PT, WILL CONTINUE TO MONITOR.
--- NOTE | 2022-07-20 12:23 | NUR ---
PT JUST FINISHED EATING AND IS TAKING A NAP, PT DENIES ANY PAIN/CHEST PAIN, BED IN LOWEST POSITION, CALL LIGHT IN BED WITH PT, WILL CONTINUE TO MONITOR.
--- NOTE | 2022-07-20 14:10 | NUR ---
PT WAS DC'D HOME, IV WAS REMOVED, PUREWICK WAS REMOVED, PT DENIES ANY PAIN/CHEST PAIN, GAVE DC INSTRUCTIONS AND PT ACKNOWLEDGED.
== END 2022-07-20 14:10 | disposition home or self-care (01) ==
LOC: ED 12:04 → ED-I 15:44 → ED 16:00 → ICU 16:01
PROVIDERS: Family Medicine; ADMIT Internal Medicine; ATTEND Internal Medicine
DX: I69.354 Hemiplegia and hemiparesis following cerebral infarction affecting left non-dominant side (principal); I69.398 Other sequelae of cerebral infarction; G40.909 Epilepsy, unspecified, not intractable, without status epilepticus; S09.90XA Unspecified injury of head, initial encounter; I69.392 Facial weakness following cerebral infarction; E78.5 Hyperlipidemia, unspecified; M25.552 Pain in left hip; F41.1 Generalized anxiety disorder; F32.A Depression, unspecified; F17.200 Nicotine dependence, unspecified, uncomplicated; W18.2XXA Fall in (into) shower or empty bathtub, initial encounter; Y93.E1 Activity, personal bathing and showering; Y92.002 Bathroom of unspecified non-institutional (private) residence as the place of occurrence of the external cause; Z86.79 Personal history of other diseases of the circulatory system; Z79.02 Long term (current) use of antithrombotics/antiplatelets; Z79.82 Long term (current) use of aspirin
CPT/HCPCS: Q9967

== ENCOUNTER 2022-08-15 18:50 | Emergency (ER) | payer MEDICARE ==
[~2022-08-15] VITALS: Ht 175.3 cm; Wt 100.0 kg
[2022-08-15 19:22] LABS: HEMATOCRIT 38.6 % (37.0-47.0); HEMOGLOBIN 12.5 g/dl (12.0-16.0); MEAN CELL VOLUME 97.5 fL CALC (80.0-100.0); MEAN CORPUSCULAR HGB 31.6 pG CALC (26.0-32.0); MEAN CORPUSCULAR HGB CONC 32.4 g/dL CAL (32.0-36.0); NEUT# 2.35 thou/uL (2.00-7.15); RED BLOOD COUNT 3.96 mill/uL (4.20-5.60); RED CELL DISTRI WIDTH 13.2 % (11.5-15.5)
[2022-08-15 19:33] LABS: ALBUMIN 4.2 g/dL (3.2-5.0); ALKALINE PHOSPHATASE 96 u/l (38-126); ANION GAP 10 (6-22 (CALC)); BILIRUBIN, TOTAL 0.3 mg/dL (0.0-1.4); BUN 8 mg/dL (7-17); BUN/CREATININE RATIO 11 (12-20 (CALC)); CARBON DIOXIDE 30 mmol/l (22-30); CHLORIDE 106 mmol/l (95-108); CREATININE 0.8 mg/dL (0.5-1.0); GFR FOR AFR.AMER. > 60 ML/MIN (>=60 (CALC)); GFR OTHER RACES > 60 ML/MIN (>=60 (CALC)); POTASSIUM 3.7 mmol/l (3.5-5.1); SGOT/AST 30 u/l (14-36); SODIUM 142 mmol/l (137-146); TOTAL PROTEIN 7.3 g/dL (6.3-8.2)
[2022-08-15 20:00] VITALS: BP 131/94
[2022-08-15] MEDS ORDERED: KEPPRA1000 MG PO (20:49)
== END 2022-08-15 22:34 | disposition home or self-care (01) ==
LOC: ED 18:50
PROVIDERS: Family Medicine
DX: G40.909 Epilepsy, unspecified, not intractable, without status epilepticus (principal); F41.9 Anxiety disorder, unspecified; F17.200 Nicotine dependence, unspecified, uncomplicated; Z86.73 Personal history of transient ischemic attack (TIA), and cerebral infarction without residual deficits
CPT/HCPCS: J1953

== ENCOUNTER 2022-08-17 08:36 | Emergency (ER) | payer MEDICARE ==
[~2022-08-17] VITALS: Ht 175.3 cm; Wt 99.1 kg
[2022-08-17] VITALS (9 sets, daily range): BP systolic 122–142; BP diastolic 73–85
[2022-08-17 09:57] LABS: HEMATOCRIT 40.9 % (37.0-47.0); IMMATURE GRANULOCYTES 0.4 % (0.0-5.0); MEAN CELL VOLUME 97.1 fL CALC (80.0-100.0); MEAN CORPUSCULAR HGB 30.9 pG CALC (26.0-32.0); MEAN CORPUSCULAR HGB CONC 31.8 g/dL CAL (32.0-36.0); NEUT# 2.87 thou/uL (2.00-7.15); RED BLOOD COUNT 4.21 mill/uL (4.20-5.60); RED CELL DISTRI WIDTH 13.1 % (11.5-15.5)
[2022-08-17 10:13] LABS: ALBUMIN 4.4 g/dL (3.2-5.0); ALKALINE PHOSPHATASE 80 u/l (38-126); BUN 10 mg/dL (7-17); BUN/CREATININE RATIO 15 (12-20 (CALC)); CARBON DIOXIDE 27 mmol/l (22-30); CHLORIDE 107 mmol/l (95-108); CREATININE 0.6 mg/dL (0.5-1.0); GFR FOR AFR.AMER. > 60 ML/MIN (>=60 (CALC)); GFR OTHER RACES > 60 ML/MIN (>=60 (CALC)); SGOT/AST 39 u/l (14-36); SODIUM 140 mmol/l (137-146); TOTAL PROTEIN 7.7 g/dL (6.3-8.2)
[2022-08-17 10:21] LABS: ANION GAP 11 (6-22 (CALC)); BILIRUBIN, TOTAL 0.6 mg/dL (0.0-1.4); POTASSIUM 4.5 mmol/l (3.5-5.1)
== END 2022-08-17 11:51 | disposition short-term general hospital (02) ==
LOC: ED 08:36
PROVIDERS: Family Medicine
DX: I69.398 Other sequelae of cerebral infarction (principal); G40.109 Localization-related (focal) (partial) symptomatic epilepsy and epileptic syndromes with simple partial seizures, not intractable, without status epilepticus; F41.9 Anxiety disorder, unspecified; F17.200 Nicotine dependence, unspecified, uncomplicated; Z79.899 Other long term (current) drug therapy
CPT/HCPCS: J1953

== ENCOUNTER 2022-08-19 18:20 | Observation (INO) | payer MEDICARE ==
[2022-08-19] VITALS (7 sets, daily range): BP systolic 123–181; BP diastolic 71–158
[~2022-08-19] VITALS: Ht 175.3 cm; Wt 80.0 kg
[2022-08-19 18:59] LABS: HEMATOCRIT 36.7 % (37.0-47.0); HEMOGLOBIN 11.9 g/dl (12.0-16.0); MEAN CELL VOLUME 96.1 fL CALC (80.0-100.0); MEAN CORPUSCULAR HGB 31.2 pG CALC (26.0-32.0); MEAN CORPUSCULAR HGB CONC 32.4 g/dL CAL (32.0-36.0); NEUT# 2.23 thou/uL (2.00-7.15); RED BLOOD COUNT 3.82 mill/uL (4.20-5.60); RED CELL DISTRI WIDTH 13.1 % (11.5-15.5)
[2022-08-19 19:09] LABS: ALBUMIN 4.4 g/dL (3.2-5.0); ALKALINE PHOSPHATASE 89 u/l (38-126); ANION GAP 13 (6-22 (CALC)); BUN 15 mg/dL (7-17); BUN/CREATININE RATIO 22 (12-20 (CALC)); CARBON DIOXIDE 23 mmol/l (22-30); CHLORIDE 107 mmol/l (95-108); CPK 97 u/l (30-165); CREATININE 0.7 mg/dL (0.5-1.0); GFR FOR AFR.AMER. > 60 ML/MIN (>=60 (CALC)); GFR OTHER RACES > 60 ML/MIN (>=60 (CALC)); LIPASE 32 u/l (23-300); MAGNESIUM 1.9 mg/dL (1.6-2.3); POTASSIUM 3.9 mmol/l (3.5-5.1); SGOT/AST 28 u/l (14-36); SODIUM 139 mmol/l (137-146); TOTAL PROTEIN 7.3 g/dL (6.3-8.2)
[2022-08-19 19:10] LABS: BILIRUBIN, TOTAL 0.2 mg/dL (0.0-1.4)
[2022-08-20 00:03] VITALS: BP 141/73
[2022-08-20 04:09] VITALS: BP 146/79
[2022-08-20 06:19] VITALS: BP 124/70
[2022-08-20 10:00] LABS: HEMATOCRIT 41.1 % (37.0-47.0); HEMOGLOBIN 13.4 g/dl (12.0-16.0); IMMATURE GRANULOCYTES 0.6 % (0.0-5.0); MEAN CELL VOLUME 95.4 fL CALC (80.0-100.0); MEAN CORPUSCULAR HGB 31.1 pG CALC (26.0-32.0); MEAN CORPUSCULAR HGB CONC 32.6 g/dL CAL (32.0-36.0); NEUT# 2.38 thou/uL (2.00-7.15); RED BLOOD COUNT 4.31 mill/uL (4.20-5.60); RED CELL DISTRI WIDTH 13.1 % (11.5-15.5)
[2022-08-20 11:01] VITALS: BP 119/71
[2022-08-20 11:10] LABS: ALBUMIN 4.8 g/dL (3.2-5.0); ALKALINE PHOSPHATASE 97 u/l (38-126); ANION GAP 15 (6-22 (CALC)); BUN 11 mg/dL (7-17); BUN/CREATININE RATIO 16 (12-20 (CALC)); CARBON DIOXIDE 25 mmol/l (22-30); CHLORIDE 107 mmol/l (95-108); CREATININE 0.7 mg/dL (0.5-1.0); GFR FOR AFR.AMER. > 60 ML/MIN (>=60 (CALC)); GFR OTHER RACES > 60 ML/MIN (>=60 (CALC)); SGOT/AST 29 u/l (14-36); SODIUM 142 mmol/l (137-146); TOTAL PROTEIN 7.9 g/dL (6.3-8.2)
[2022-08-20 11:15] LABS: BILIRUBIN, TOTAL 0.4 mg/dL (0.0-1.4)
[2022-08-20 16:36] VITALS: BP 116/74
[2022-08-20 19:30] VITALS: BP 122/68
[2022-08-21 00:04] VITALS: BP 114/64
[2022-08-21 04:59] VITALS: BP 146/78
[2022-08-21 07:15] VITALS: BP 136/88
[2022-08-21 10:14] VITALS: BP 119/78
[2022-08-21] MEDS ORDERED: ZOLOFT100 MG PO (12:19)
== END 2022-08-21 13:40 | disposition home health service (06) ==
LOC: ED 18:20 → ED-I 20:30 → ED 21:01 → MS2 21:02
PROVIDERS: Internal Medicine; ADMIT Internal Medicine; ATTEND Internal Medicine
DX: R56.9 Unspecified convulsions (principal); F41.1 Generalized anxiety disorder; F43.0 Acute stress reaction; I69.354 Hemiplegia and hemiparesis following cerebral infarction affecting left non-dominant side; F32.A Depression, unspecified; F17.200 Nicotine dependence, unspecified, uncomplicated
CPT/HCPCS: J1650; J2060; S0166

== ENCOUNTER 2023-04-02 16:46 | Emergency (ER) | payer MEDICARE, MEDICAID ==
[~2023-04-02] VITALS: Ht 175.3 cm; Wt 104.3 kg
[~2023-04-02 16:46] MED LIST changes: +DICLOFENAC SODIUM1 % TOP; +XANAX2 MG PO
[2023-04-02 16:56] VITALS: BP 117/76
[2023-04-02 17:00] VITALS: BP 115/87
[2023-04-02 20:21] VITALS: BP 115/87
== END 2023-04-02 20:24 | disposition left against medical advice (07) ==
LOC: ED 16:46
DX: R51.9 Headache, unspecified (principal); F41.9 Anxiety disorder, unspecified; F17.200 Nicotine dependence, unspecified, uncomplicated; Z86.73 Personal history of transient ischemic attack (TIA), and cerebral infarction without residual deficits; Z53.29 Procedure and treatment not carried out because of patient's decision for other reasons

== ENCOUNTER 2023-05-31 20:45 | Emergency (ER) | payer MEDICARE, MEDICAID ==
[~2023-05-31] VITALS: Ht 175.3 cm; Wt 104.5 kg
[2023-05-31 21:01] VITALS: BP 105/74
[2023-05-31 21:15] VITALS: BP 105/84
[2023-05-31 21:31] VITALS: BP 119/79
[2023-05-31 22:02] LABS: URINE BILIRUBIN - DIPSTICK Negative (NEGATIVE); URINE BLOOD DIPSTICK Negative (NEGATIVE); URINE GLUCOSE - DIPSTICK Negative (NEGATIVE); URINE KETONE 15 mg/dL (NEGATIVE); URINE LEUK ESTERASE Trace (NEGATIVE); URINE NITRITE - DIPSTICK Negative (Negative); URINE PROTEIN - DIPSTICK 30 mg/dL (NEG-TRACE)
[2023-05-31 22:03] LABS: URINE COLOR Yellow
[2023-05-31 22:05] LABS: URINE RBC 0-2 RBC/hpf (0-5); URINE SQUAMOUS EPITHELIAL CELL MANY EPI/hpf (0-FEW)
[2023-05-31 23:31] VITALS: BP 119/79
== END 2023-05-31 23:46 | disposition home or self-care (01) ==
LOC: ED 20:45
PROVIDERS: Internal Medicine
DX: U07.1 COVID-19 (principal); M79.10 Myalgia, unspecified site; R51.9 Headache, unspecified; F41.9 Anxiety disorder, unspecified; F17.200 Nicotine dependence, unspecified, uncomplicated; Z86.73 Personal history of transient ischemic attack (TIA), and cerebral infarction without residual deficits

== ENCOUNTER 2024-04-18 13:23 | Emergency (ER) | payer MEDICARE ==
[~2024-04-18] VITALS: Ht 175.3 cm; Wt 86.0 kg
[2024-04-18] VITALS (7 sets, daily range): BP systolic 114–131; BP diastolic 70–102
[2024-04-18 14:17] LABS: BASO% 0.2 % (0-3); HEMATOCRIT 37.4 % (37.0-47.0); LYMPH% 49.4 % (15-41); MEAN CELL VOLUME 95.2 fL CALC (80.0-100.0); MEAN CORPUSCULAR HGB 30.5 pG CALC (26.0-32.0); MEAN CORPUSCULAR HGB CONC 32.1 g/dL CAL (32.0-36.0); MONO% 5.3 % (2-13); NEUT# 2.24 thou/uL (2.00-7.15); NEUT% 44.1 % (42-76); RED BLOOD COUNT 3.93 mill/uL (4.20-5.60); RED CELL DISTRI WIDTH 13.9 % (11.5-15.5)
[2024-04-18 14:53] LABS: ALBUMIN 4.1 g/dL (3.2-5.0); ALKALINE PHOSPHATASE 85 u/l (38-126); ANION GAP 7 (6-22 (CALC)); BILIRUBIN, TOTAL 0.3 mg/dL (0.02-1.3); BUN 16 mg/dL (7-17); BUN/CREATININE RATIO 25 (12-20 (CALC)); CARBON DIOXIDE 24 mmol/l (22-30); CHLORIDE 113 mmol/l (95-108); CREATININE 0.6 mg/dL (0.5-1.0); ESTIMATED GFR 104 ML/MIN (>=90 (CALC)); POTASSIUM 3.5 mmol/l (3.5-5.1); SGOT/AST 28 u/l (14-36); SODIUM 141 mmol/l (137-146); TOTAL PROTEIN 7.1 g/dL (6.3-8.2)
== END 2024-04-18 16:31 | disposition home or self-care (01) ==
LOC: ED 13:23
PROVIDERS: Family Medicine
DX: F41.1 Generalized anxiety disorder (principal); F43.0 Acute stress reaction; F17.200 Nicotine dependence, unspecified, uncomplicated; Z86.73 Personal history of transient ischemic attack (TIA), and cerebral infarction without residual deficits

== ENCOUNTER 2024-11-07 17:02 | Emergency (ER) | payer MEDICARE ==
[~2024-11-07] VITALS: Ht 175.3 cm; Wt 115.0 kg
[2024-11-07] MEDS ORDERED: SODIUM CHLORIDE 0.9% 1,000 ML IV ONE (17:35)
[2024-11-07 17:48] LABS: BASO% 0.4 % (0-3); EOS% 2.2 % (0-8); HEMATOCRIT 38.7 % (37.0-47.0); HEMOGLOBIN 12.3 g/dl (12.0-16.0); LYMPH% 50.2 % (15-41); MEAN CELL VOLUME 95.3 fL CALC (80.0-100.0); MEAN CORPUSCULAR HGB 30.3 pG CALC (26.0-32.0); MEAN CORPUSCULAR HGB CONC 31.8 g/dL CAL (32.0-36.0); MONO% 6.1 % (2-13); NEUT# 2.1 thou/uL (2.00-7.15); NEUT% 41.1 % (42-76); RED BLOOD COUNT 4.06 mill/uL (4.20-5.60); RED CELL DISTRI WIDTH 13.8 % (11.5-15.5)
[2024-11-07 18:32] LABS: URINE BLOOD DIPSTICK Negative (NEGATIVE); URINE GLUCOSE - DIPSTICK Negative (NEGATIVE); URINE KETONE Trace mg/dL (NEGATIVE); URINE NITRITE - DIPSTICK Negative (Negative); URINE PH 5.5 (4.5-8.0); URINE PROTEIN - DIPSTICK 30 mg/dL (NEG-TRACE); URINE SPECIFIC GRAVITY >=1.030
[2024-11-07 18:33] LABS: URINE COLOR Dark yellow; URINE LEUK ESTERASE Small (NEGATIVE)
[2024-11-07 18:33] LABS: ALBUMIN 3.7 g/dL (3.2-5.0); CREATININE 0.7 mg/dL (0.5-1.0); POTASSIUM 4.1 mmol/l (3.5-5.1); TOTAL PROTEIN 6.4 g/dL (6.3-8.2)
[2024-11-07 18:35] LABS: BILIRUBIN, TOTAL 0.5 mg/dL (0.02-1.3)
[2024-11-07 18:38] LABS: URINE BACTERIA FEW hpf; URINE MUCUS MODERATE hpf (NONE-FEW); URINE RBC 0-2 RBC/hpf (0-5); URINE SQUAMOUS EPITHELIAL CELL FEW EPI/hpf (0-FEW)
[2024-11-07] MEDS ORDERED: ACETAMINOPHEN 325 MG/TAB PO ONE (18:50)
[2024-11-07 19:43] VITALS: BP 131/79
== END 2024-11-07 19:43 | disposition home or self-care (01) ==
LOC: ED 17:02
PROVIDERS: Family Medicine
DX: R53.1 Weakness (principal); R51.9 Headache, unspecified; I69.354 Hemiplegia and hemiparesis following cerebral infarction affecting left non-dominant side; G40.909 Epilepsy, unspecified, not intractable, without status epilepticus; F17.210 Nicotine dependence, cigarettes, uncomplicated